=== PATIENT | male | born 1935 | race Caucasian/White ===

== ENCOUNTER 2016-10-19 22:23 | Observation (INO) | payer MEDICARE, BC ==
[2016-10-19] MEDS ORDERED: Sodium Chloride 0.9% 1,000 ML IV SCH (23:30)
[2016-10-19] MEDS ORDERED: Ondansetron 4 MG/2 ML SDV IVPUSH ONE (23:30)
--- NOTE | 2016-10-19 23:43 | EDM.PDOC ---
ED HPI NEURO - General Chief Complaint: Syncope Stated Complaint: illness Time Seen by Provider: 10/19/16 23:35 Source: Reports: Patient, Family History Limitations: Reports: No limitations - History of Present Illness INITIAL COMMENTS - FREE TEXT/NARRATIVE: pt had an MRI today which showed a large distended bladder. He went to the clinic and he had a ellis cath inserted. He had over 1000 cc of urine removed. he went home and had some supper and he passed out in the br. He hit the rt chest area and rt upper abdoman. Timing/Duration: Reports: Hour(s): Associated symptoms: Reports: chest pain, diaphoresis, other ( chilling) - Related Data Allergies/ADRs: Allergies Allergy/AdvReac Type Severity Reaction Status Date / Time simvastatin Allergy Muscle Verified 10/20/16 01:12 Aches Home Meds: Home Meds Esomeprazole Magnesium [Nexium] 20 mg PO BID 12/07/15 [History] Zolpidem Tartrate [Ambien] 10 mg PO BEDTIME 12/07/15 [History] Carbidopa/Levodopa [Carbidopa-Levodopa 25-100 Tab] 1 tab PO BEDTIME 03/03/16 [ History] Fluticasone Propionate [Flonase Allergy Relief] 2 sprays NS DAILY 10/19/16 [ History] Glucosamine HCl [Glucosamine] 1,500 mg PO DAILY 10/19/16 [History] Losartan/Hydrochlorothiazide [Losartan-HCTZ 100-12.5 MG] 1 tab PO DAILY [History] Methocarbamol [Robaxin] 750 mg PO QID PRN 10/19/16 [History] Pravastatin Sodium [Pravastatin (Pravachol)] 40 mg PO BEDTIME 10/19/16 [History] Tamsulosin HCl [Flomax] 0.4 mg PO DAILY 10/19/16 [History] traMADol HCl [Tramadol HCl] 50 mg PO Q6H PRN 10/19/16 [History] Past Medical History HEENT History: Reports: Hard of hearing Gastrointestinal History: Reports: Diverticulosis Musculoskeletal History: Reports: Back pain, chronic Oncologic (Cancer) History: Reports: Squamous cell carcinoma Dermatologic History: Reports: Other (see below) Other Dermatologic History: NOSE AND l EAR CA REMOVED - Past Surgical History GI Surgical History: Reports: Hernia repair/other Social & Family History - Family History Hematologic: Reports: Other (see below) (Daughter with factor V Leiden mutation) . Denies: Bleeding disorder - Tobacco Use Smoking Status *Q: Never Smoker - Alcohol Use Days Per Week of Alcohol Use: 7 Number of Drinks Per Day: 1 Total Drinks Per Week: 7 - Recreational Drug Use Recreational Drug Use: No ED ROS GENERAL - Review of Systems Review Of Systems: See Below Constitutional: Reports: chills, weakness HEENT: Reports: No symptoms Respiratory: Reports: Other (pain in the rt chest) Cardiovascular: Reports: No symptoms Endocrine: Reports: no symptoms GI/Abdominal: Reports: Abdominal pain ED EXAM, NEURO - Physical Exam Exam: See Below Text/Narrative:: pt was at the clinic today and he had a ellis cath inserted because his bladder was very distended. He went home and was doing ok and he went in the bathroom to get ready for bed and he passed out hitting the rt side of his chest and rt upper abdoman. He had a cat scan with contrast today which had shown the markedly distended bladder. He had an Mri of his back earlier. Exam Limited By: No limitations General Appearance: alert, anxious, other (Pt was complaining of having shaking chills after the fall. ) Ears: normal TMs Nose: normal inspection Throat/Mouth: Normal inspection Head Exam: atraumatic Neck: normal inspection Respiratory/Chest: no respiratory distress, other (pt is very tender in the left lower anterior rib cage. ) Cardiovascular: regular rate, rhythm GI/Abdominal: soft, other ( Pt does have tenderness ovr the rt upper abdoman. ) (Male) Exam: Deferred Rectal (Males) Exam: Deferred Neurological: alert, oriented x 3, other ( Pt is feeling very mauseated and has been wretching. ) Back Exam: other ( pt has chronic low back pain. ) Extremities: normal inspection Psychiatric: normal affect Skin Exam: Cool, Other ( Pt was very diaphoretic at home. ) Course - Vital Signs Last Recorded V/S: Last Vital Signs Temp 36.6 C 10/20/16 01:09 Pulse 82 10/20/16 03:07 Resp 15 10/20/16 03:07 BP 131/60 10/20/16 03:07 Pulse Ox 94 L 10/20/16 03:07 - Orders/Labs/Meds Orders: Active Orders 24 hr Category Date Time Status EKG Documentation Completion [RC] ASDIRECTED Care 10/19/16 23:09 Active Abdomen Pelvis w Cont [CT] Stat Exams 10/20/16 01:22 Taken Chest wo Cont [CT] Stat Exams 10/19/16 23:41 Taken Head wo Cont [CT] Stat Exams 10/19/16 23:42 Taken Ribs 2V w Chest Rt [CR] Stat Exams 10/19/16 23:31 Stop Req CULTURE URINE [RM] Stat Lab 10/20/16 00:08 Received Iopamidol [Isovue-300 (61%)] Med 10/20/16 01:45 Active 100 ml IV . DIRECTED PRN Sodium Chloride 0.9% [Normal Saline] 1,000 ml Med 10/19/16 23:30 Active IV ASDIRECTED Sodium Chloride 0.9% [Normal Saline] 1,000 ml Med 10/20/16 03:15 Active IV ASDIRECTED Sodium Chloride 0.9% [Normal Saline] 72 ml Med 10/20/16 01:45 Active IV ASDIRECTED EKG 12 Lead [EK] Routine Ther 10/19/16 23:09 Ordered Medication Orders Sodium Chloride (Normal Saline) 1,000 mls @ 400 mls/hr IV ASDIRECTED [facility] Last Admin: 10/19/16 23:57 Dose: 400 mls/hr Sodium Chloride (Normal Saline) 72 mls @ 3 mls/sec IV ASDIRECTED [facility] Last Admin: 10/20/16 02:00 Dose: 3 mls/sec Sodium Chloride (Normal Saline) 1,000 mls @ 200 mls/hr IV ASDIRECTED [facility] Last Admin: 10/20/16 03:13 Dose: 200 mls/hr Iopamidol (Isovue-300 (61%)) 100 ml IV . DIRECTED PRN PRN Reason: RADIOLOGY EXAM Stop: 10/21/16 01:46 Last Admin: 10/20/16 01:59 Dose: 100 ml Labs: Laboratory Tests 10/19/16 10/19/16 10/19/16 Range/Units 23:15 23:19 23:19 WBC 16.4 H (4.5-11.0) K/uL RBC 4.46 (4.30-5.90) M/uL Hgb 14.3 D (12.0-15.0) g/dL Hct 42.2 (40.0-54.0) % MCV 95 (80-98) fL MCH 32 H (27-31) pg MCHC 34 (32-36) % Plt Count 336 (150-400) K/uL Neut % (Auto) 78 H (36-66) % Lymph % (Auto) 15 L (24-44) % [place] % (Auto) 7 H (2-6) % Eos % (Auto) 1 L (2-4) % Baso % (Auto) 0 (0-1) % Sodium 140 (140-148) mmol/L Potassium 3.1 L (3.6-5.2) mmol/L Chloride 102 (100-108) mmol/L Carbon Dioxide 22 (21-32) mmol/L Anion Gap 19.1 H (5.0-14.0) mmol/L BUN 17 D (7-18) mg/dL Creatinine 1.1 (0.8-1.3) mg/dL Est Cr Clr Drug Dosing 60.53 mL/min Estimated GFR (MDRD) > 60 (>60) Glucose 138 H (74-106) mg/dL Lactic Acid (0.4-2.0) mmol/L Calcium 8.5 (8.5-10.1) mg/dL Total Bilirubin 0.5 (0.2-1.0) mg/dL AST 90 H (15-37) U/L ALT 101 H (12-78) U/L Alkaline Phosphatase 54 (46-116) U/L Troponin I (0.000-0.056) ng/mL Total Protein 7.0 (6.4-8.2) g/dL Albumin 3.7 (3.4-5.0) g/dL Globulin 3.3 (2.3-3.5) g/dL Albumin/Globulin Ratio 1.1 L (1.2-2.2) Urine Color Yellow Urine Appearance Slightly cloudy Urine pH 5.0 (4.5-8.0) Ur Specific [place] 1.015 (1.008-1.030) Urine Protein Negative (NEGATIVE) mg/dL Urine Glucose (UA) Normal (NEGATIVE) mg/dL Urine Ketones Negative (NEGATIVE) mg/dL Urine Occult Blood Large (NEGATIVE) Urine Nitrite Negative (NEGAITVE) Urine Bilirubin Negative (NEGATIVE) Urine Urobilinogen Normal (NORMAL) mg/dL Ur Leukocyte Esterase Small (NEGATIVE) Urine RBC 10-20 H (0-5) Urine WBC 0-5 (0-5) Ur Epithelial Cells Not seen Amorphous Sediment Not seen Urine Bacteria Not seen Urine Mucus Not seen 10/19/16 10/19/16 Range/Units 23:19 23:34 WBC (4.5-11.0) K/uL RBC (4.30-5.90) M/uL Hgb (12.0-15.0) g/dL Hct (40.0-54.0) % MCV (80-98) fL MCH (27-31) pg MCHC (32-36) % Plt Count (150-400) K/uL Neut % (Auto) (36-66) % Lymph % (Auto) (24-44) % [place] % (Auto) (2-6) % Eos % (Auto) (2-4) % Baso % (Auto) (0-1) % Sodium (140-148) mmol/L Potassium (3.6-5.2) mmol/L Chloride (100-108) mmol/L Carbon Dioxide (21-32) mmol/L Anion Gap (5.0-14.0) mmol/L BUN (7-18) mg/dL Creatinine (0.8-1.3) mg/dL Est Cr Clr Drug Dosing mL/min Estimated GFR (MDRD) (>60) Glucose (74-106) mg/dL Lactic Acid 4.4 H (0.4-2.0) mmol/L Calcium (8.5-10.1) mg/dL Total Bilirubin (0.2-1.0) mg/dL AST (15-37) U/L ALT (12-78) U/L Alkaline Phosphatase (46-116) U/L Troponin I < 0.017 (0.000-0.056) ng/mL Total Protein (6.4-8.2) g/dL Albumin (3.4-5.0) g/dL Globulin (2.3-3.5) g/dL Albumin/Globulin Ratio (1.2-2.2) Urine Color Urine Appearance Urine pH (4.5-8.0) Ur Specific [place] (1.008-1.030) Urine Protein (NEGATIVE) mg/dL Urine Glucose (UA) (NEGATIVE) mg/dL Urine Ketones (NEGATIVE) mg/dL Urine Occult Blood (NEGATIVE) Urine Nitrite (NEGAITVE) Urine Bilirubin (NEGATIVE) Urine Urobilinogen (NORMAL) mg/dL Ur Leukocyte Esterase (NEGATIVE) Urine RBC (0-5) Urine WBC (0-5) Ur Epithelial Cells Amorphous Sediment Urine Bacteria Urine Mucus Meds: Medications Generic Name Dose Route Start Last Admin Trade Name Freq PRN Reason Stop Dose Admin Sodium Chloride 1,000 mls @ 400 mls/hr 10/19/16 23:30 10/19/16 23:57 Normal Saline IV 400 mls/hr ASDIRECTED MATIAS Administration Sodium Chloride 72 mls @ 3 mls/sec 10/20/16 01:45 10/20/16 02:00 Normal Saline IV 3 mls/sec ASDIRECTED MATIAS Administration Sodium Chloride 1,000 mls @ 200 mls/hr 10/20/16 03:15 10/20/16 03:13 Normal Saline IV 200 mls/hr ASDIRECTED MATIAS Administration Iopamidol 100 ml 10/20/16 01:45 10/20/16 01:59 Isovue-300 (61%) IV 10/21/16 01:46 100 ml . DIRECTED PRN Administration RADIOLOGY EXAM Discontinued Medications Generic Name Dose Route Start Last Admin Trade Name Freq PRN Reason Stop Dose Admin Hydromorphone HCl 0.5 mg 10/20/16 03:07 10/20/16 03:15 Dilaudid IVPUSH 10/20/16 03:08 0.5 mg ONETIME ONE Administration Levofloxacin/Dextrose 500 mg/ 100 mls @ 100 mls/hr 10/20/16 01:39 10/20/16 02 :03 Premix IV 10/20/16 02:38 100 mls/hr ONETIME ONE Administration Ondansetron HCl 4 mg 10/19/16 23:30 10/19/16 23:59 Zofran IVPUSH 10/19/16 23:31 4 mg ONETIME ONE Administration - Re-Assessments/Exams Free Text/Narrative Re-Assessment/Exam: 10/20/16 01:36 pt hd a cat scan of the chest and look at the upper abdoman. Pt was found to have 2 fractured ribs on the left. With the chest cat scan It was noted that he had an adrenal hematoma. The radiologist did reccommend a cat scan of the abdoman with contrast reduced by 25% 10/20/16 03:08 cat scan showed a hematoma of the adrenal gland and 2 fractured ribs/ Departure - Departure Time of Disposition: 03:09 Disposition: Admitted As Inpatient 67 Condition: fair Clinical Impression: Fracture of two ribs, Hematoma of adrenal gland due to trauma, Sepsis Referrals: Gordon Carcamo MD [Primary Care Provider] - Forms: ED Department Discharge Care Plan Goals: admit to Dr Harding. - My Orders Last 24 Hours: My Active Orders 10/19/16 23:09 EKG Documentation Completion [RC] ASDIRECTED EKG 12 Lead [EK] Routine 10/19/16 23:30 Sodium Chloride 0.9% [Normal Saline] 1,000 ml IV ASDIRECTED 10/19/16 23:31 Ribs 2V w Chest Rt [CR] Stat 10/19/16 23:41 Chest wo Cont [CT] Stat 10/19/16 23:42 Head wo Cont [CT] Stat 10/20/16 00:08 CULTURE URINE [RM] Stat 10/20/16 01:22 Abdomen Pelvis w Cont [CT] Stat 10/20/16 01:45 Iopamidol [Isovue-300 (61%)] 100 ml IV . DIRECTED PRN Sodium Chloride 0.9% [Normal Saline] 72 ml IV ASDIRECTED 10/20/16 03:15 Sodium Chloride 0.9% [Normal Saline] 1,000 ml IV ASDIRECTED - Assessment/Plan Last 24 Hours: My Active Orders 10/19/16 23:09 EKG Documentation Completion [RC] ASDIRECTED EKG 12 Lead [EK] Routine 10/19/16 23:30 Sodium Chloride 0.9% [Normal Saline] 1,000 ml IV ASDIRECTED 10/19/16 23:31 Ribs 2V w Chest Rt [CR] Stat 10/19/16 23:41 Chest wo Cont [CT] Stat 10/19/16 23:42 Head wo Cont [CT] Stat 10/20/16 00:08 CULTURE URINE [RM] Stat 10/20/16 01:22 Abdomen Pelvis w Cont [CT] Stat 10/20/16 01:45 Iopamidol [Isovue-300 (61%)] 100 ml IV . DIRECTED PRN Sodium Chloride 0.9% [Normal Saline] 72 ml IV ASDIRECTED 10/20/16 03:15 Sodium Chloride 0.9% [Normal Saline] 1,000 ml IV ASDIRECTED
[2016-10-20] MEDS ORDERED: Levofloxacin/Dextrose 5%-Water 500 MG in Premix Bag 1 BAG IV ONE (01:39)
[2016-10-20] MEDS ORDERED: Iopamidol 612 MG/ML 100 ML Bottle IV PRN (01:45)
[2016-10-20] MEDS ORDERED: HYDROmorphone 0.5 MG/0.5 ML Syringe IVPUSH ONE (03:07)
[2016-10-20] MEDS: Sodium Chloride 0.9% 1,000 ML IV SCH ×2 (03:13→08:06)
[2016-10-20] MEDS ORDERED: Sodium Chloride 0.9% 1,000 ML IV SCH (03:15)
[2016-10-20] MEDS ORDERED: Levofloxacin 500 MG Tab PO SCH ×2 (04:45→21:00)
[2016-10-20] MEDS: Acetaminophen/HYDROcodone 325-10 MG Tab PO PRN ×3 (05:28→16:05)
--- NOTE | 2016-10-20 08:08 | HP ---
IDENTIFYING DATA: Gordon Luz is an 81-year-old male from [place]. CHIEF COMPLAINT: Fall with resultant pain. HISTORY OF PRESENT ILLNESS: This adult male today had scheduled imaging completed, which revealed evidence of urinary outlet obstructive process with markedly distended bladder. He was summoned to the clinic and had a Brown catheter inserted this afternoon with drainage of greater than 1 L of fluid. He states he has had no recent history of lower abdominal pain or urinary hesitancy. He denies nocturia or incontinence. He felt well after placement of Brown catheter and returned to home. This evening as he was preparing for bed, he was in his bathroom and had an episode of dizziness or lightheadedness, falling and striking the right aspect of his trunk and right upper extremity on the edge of a tub. He presented to the hospital for evaluation and was admitted with noted injuries. Primary complaint is that of right-sided thoracic pain, most notably with movement and deep inspiration. Additionally, he has a skin tear developing over the extensor surface of the right arm and has developing right-sided abdominal pain with nausea. He denies shortness of breath, cough, sputum production, or hemoptysis. An episode of emesis without hematemesis was noted at home. PREVIOUS SURGERIES: Include a hiatal hernia repair. Additionally, he has a history of restless legs syndrome, hypertension, hyperlipidemia, and intermittent mid lumbar back pain. Dyspeptic symptoms are managed with the use of PPI agents. HABITS: Nonsmoker. Caffeine intake averages 2 to 3 cups of coffee daily. Alcohol use of 1 to 2 drinks per day. He did have a single drink this evening with supper. ALLERGIES: REPORTED TO SIMVASTATIN WITH MYALGIAS. CURRENT MEDICATIONS: Nexium 20 mg p.o. b.i.d.; Ambien 10 mg at bedtime; carbidopa/levodopa 25/100 at bedtime; fluticasone nasal spray to each naris daily; glucosamine 1500 mg daily; losartan with hydrochlorothiazide 100/12.5 mg daily; methocarbamol 750 mg q.i.d. p.r.n. muscle spasm; pravastatin 40 mg at bedtime; Flomax 0.4 mg at evening initiated today with catheterization; and tramadol 50 mg q.6 hours p.r.n. pain, no recent use. SOCIAL HISTORY: Retired banker. He lives independently with his in their [place] [facility]. They winter in [facility]. They have returned from their [place] residence driving by car within the past week. He reports children live in [place], [place] and [place], [place]. FAMILY HISTORY: Denies family history of recent acute illnesses. REVIEW OF SYSTEMS: NEUROLOGIC: Glasses are worn. No significant hearing loss. No history of strokes or seizures. Restless leg is managed with the use of Sinemet, additionally he uses Ambien at bedtime to aid in sleep; has not used either medication today. CARDIAC: History of hypertension. No history of diabetes, congenital heart disease, rheumatic fever, murmur, KS, or cardiac dysrhythmia. RESPIRATORY: Denies cough, sputum production, or chronic obstructive pulmonary disease. No recent URIs. GI: Dyspeptic symptoms respond to use of Nexium. No history of hepatitis, jaundice, gallbladder disease, constipation, diarrhea, melena, or hematochezia. : Urinary obstructive symptoms as noted today with Brown catheter placement. No history of recurrent UTIs. He denies fevers or chills since instrumentation earlier today. MUSCULOSKELETAL: Intermittent back pain, otherwise no complaints. No other recent falls. OBJECTIVE: GENERAL: Appearance is that of an adult male, in mild distress secondary to chest wall pain. INITIAL VITALS: Temperature 36.6 degrees centigrade, pulse 82, respiratory rate 15, blood pressure 131/60, and O2 saturations 94% on room air. HEENT: Suggestion of mild hearing loss by conversation. Canals and TMs are normal. Extraocular eye movements are intact. No trauma or injury to the face. No oral or pharyngeal lesions. NECK: No adenopathy or thyromegaly. Brisk carotid pulses. No bruits or JVD. LUNGS: Symmetrical, clear, non-tachypneic. No pleuritic rubs. He has right-sided chest wall tenderness to palpation and discomfort with deep inspiration. HEART: Regular without murmurs or gallops noted. ABDOMEN: Nondistended. Active sounds. No obvious organomegaly. No guarding, rebound, or referred pain. Moderate tenderness to palpation in the right mid upper abdomen. No CVA tenderness. No lower abdominal discomfort. Brown catheter is in place draining leticia- colored urine. MUSCULOSKELETAL: No pelvic tenderness to palpation. No percussion tenderness over the lumbar spine. Lower extremities are warm and pink. Brisk capillary refill. Strong arterial pulses. No pitting edema, cyanosis, or diaphoresis. LABORATORY DATA: On admission: WBC 16.4, hemoglobin 14.3, platelet count 336,000 with 78 neutrophils, 15 lymphocytes, 7 monos, 1 eo. Sodium 140, potassium 3.1, BUN 17, creatinine 1.1, glucose 138, calcium 8.5, alkaline phosphatase 54, AST 90. Urinalysis: A large amount of occult blood, 10 to 20 rbc's per high-powered field, leukocyte esterase small, 0 to 5 wbc's, no bacteria evident. Troponin less than 0.017. Lactic acid is mildly elevated at 4.4. CT imaging obtained at the time of admission revealed right-sided rib fractures without heme effusion or pulmonary injury. Right adrenal hematoma is also reported by Radiology Services. IMPRESSION: 1. Right rib fracture with resultant chest wall pain secondary to fall. 2. Right adrenal hematoma secondary to fall. 3. Urinary outlet obstruction with Brown catheter insertion today and initiation of alpha- fox therapy with Flomax. 4. History of hypertension. 5. Restless legs syndrome. 6. Intermittent mid lumbar back pain. PLAN: The patient is admitted to observation bed for pain management, IV fluids, oral intake as tolerated, and oral analgesics will be provided. Encourage movement with standby assistance of nursing staff. Followup BMP to review renal function and electrolytes in 24 hours is requested. We will continue with his Nexium, Sinemet, losartan, hydrochlorothiazide, and pravastatin as well as Flomax. Recognize that DEJAN inhibitor may be responsible for orthostasis with medications start-up. Full code status is initiated. I anticipate a stay of less than 48 hours and discharged to home when pain management shows improved control. Rich Harding MD /[id number]
[2016-10-20] MEDS: Ondansetron 4 MG/2 ML SDV IVPUSH PRN ×2 (08:31→20:19)
[2016-10-20] MEDS ORDERED: Hydrochlorothiazide 12.5 MG Cap PO SCH (09:00)
[2016-10-20] MEDS ORDERED: Losartan 50 MG Tab PO SCH (09:00)
[2016-10-20] MEDS: LOSARTAN PO SCH (09:49)
[2016-10-20] MEDS: HCTZ PO SCH (09:49)
[2016-10-20] MEDS: Pantoprazole 40 MG Tab.CR PO SCH ×2 (09:54→16:07)
[2016-10-20] MEDS: Tamsulosin 0.4 MG Cap.ER PO SCH (09:54)
[2016-10-20] MEDS ORDERED: METHOCARBAMOL 750 MG PO PRN (11:51)
[2016-10-20] MEDS ORDERED: Potassium Chloride 20 MEQ Tab.ER PO ONE ×2 (12:30→18:00)
[2016-10-20] MEDS: traMADol 50 MG Tab PO PRN ×2 (13:46→20:04)
[2016-10-20] MEDS ORDERED: LEVODOPA PO SCH (21:00)
[2016-10-20] MEDS ORDERED: CARBIDOPA PO SCH (21:00)
[2016-10-20] MEDS ORDERED: Pravastatin 20 MG Tab PO SCH (21:00)
[2016-10-21] MEDS: Acetaminophen/HYDROcodone 325-10 MG Tab PO PRN (00:33)
[2016-10-21] MEDS: traMADol 50 MG Tab PO PRN (05:30)
[2016-10-21] MEDS: Pantoprazole 40 MG Tab.CR PO SCH (07:25)
[2016-10-21] MEDS: HCTZ PO SCH (08:17)
[2016-10-21] MEDS: LOSARTAN PO SCH (08:17)
[2016-10-21] MEDS: Tamsulosin 0.4 MG Cap.ER PO SCH (08:18)
[2016-10-21 10:50] VITALS: BP 172/96
--- NOTE | 2016-10-21 11:20 | PCM.DCSUM1 ---
Discharge Summary - Hospital Course Brief History: Mr. Luz is an 81-year-old gentleman who is admitted through the emergency department after he became lightheaded and experienced a syncopal episode at home resulting in 2 right-sided rib fractures as well as hematoma of the adrenal gland. - Discharge Data Discharge Date: 10/21/16 Discharge Disposition: Home, Self-Care 01 Condition: Fair - Discharge Diagnosis/Problem(s) (1) Fracture of two ribs SNOMED Code(s): 95066225 ICD Code: S22.49XA - MULTIPLE FRACTURES OF RIBS, UNSP SIDE, INIT FOR CLOS FX Status: Acute Current Visit: Yes (2) Hematoma of adrenal gland due to trauma SNOMED Code(s): 100657366 ICD Code: S37.819A - UNSPECIFIED INJURY OF ADRENAL GLAND, INITIAL ENCOUNTER Status: Acute Current Visit: Yes (3) Syncope and collapse SNOMED Code(s): 721369995 ICD Code: R55 - SYNCOPE AND COLLAPSE Status: Acute Current Visit: No - Patient Summary/Data Hospital Course: Mr. Luz and has had recent difficulty with urination, on the day of admission CT scan showed evidence of significant bladder distention. He was brought into the clinic and a Brown catheter was placed for management of the urinary retention, at that time he was also started on Flomax 0.4 mg daily. He felt well through the afternoon, he and his went to [place] do some shopping. After they returned he was standing in the kitchen and noted lightheadedness with some diaphoresis and experienced a syncopal episode, the way to the floor he did hit the counter with his right chest and upper abdomen. He was brought into the urgency department for further evaluation. CT scan of the head was unremarkable, CT scan of the chest documented 2 right-sided rib fractures. CT scan of the abdomen showed evidence of a hematoma involving the adrenal gland but no other significant abnormalities. He was admitted for pain control and further monitoring. It was felt likely that the additional dose of Flomax contributed to his lightheadedness and syncopal episode, there may also have been a component of a vagal episode. He was hemodynamically stable throughout the rest of his hospital stay with no evidence of significant cardiac dysrhythmias on cardiac monitoring. He will be discharged home with incentive spirometer as well as pain medication for management of his rib fractures. Brown catheter will be left in place and he will remain on the Flomax. Blood pressure medications were adjusted, prior to admission he been on losartan with hydrochlorothiazide 100/12.5. This will be changed at the time of discharge did just losartan 100 mg daily without the hydrochlorothiazide. He will monitor his blood pressures at home and if he experiences significant lightheadedness will lie down immediately. Activity will be as tolerated and he will resume his usual diet. He already has a followup appointment with Dr. Carcamo in 5 days at the clinic. - Patient Instructions Diet: Regular Diet as Tolerated Activity: As Tolerated Other/Special Instructions: Use the incentive spirometer several times an hour while awake. Patient already has appointment to see Dr. Carcamo for followup in 5 days. Brown catheter to remain in place until he sees Dr. Carcamo for the followup appointment. - Discharge Plan Prescriptions/Med Rec: Acetaminophen/HYDROcodone [[place] 325-10 MG] 1 tab PO Q4H PRN #24 tablet PRN Reason: Pain Losartan [Cozaar] 100 mg PO DAILY #30 tablet Home Medications: Home Meds Esomeprazole Magnesium [Nexium] 20 mg PO BID 12/07/15 [History] Zolpidem Tartrate [Ambien] 10 mg PO BEDTIME 12/07/15 [History] Carbidopa/Levodopa [Carbidopa-Levodopa 25-100 Tab] 1 tab PO BEDTIME 03/03/16 [ History] Fluticasone Propionate [Flonase Allergy Relief] 2 sprays NS DAILY 10/19/16 [ History] Glucosamine HCl [Glucosamine] 1,500 mg PO DAILY 10/19/16 [History] Methocarbamol [Robaxin] 750 mg PO QID PRN 10/19/16 [History] Pravastatin Sodium [Pravastatin (Pravachol)] 40 mg PO BEDTIME 10/19/16 [History] Tamsulosin HCl [Flomax] 0.4 mg PO DAILY 10/19/16 [History] Acetaminophen/HYDROcodone [[place] 325-10 MG] 1 tab PO Q4H PRN #24 tablet [Rx] Losartan [Cozaar] 100 mg PO DAILY #30 tablet 10/21/16 [Rx] Forms: ED Department Discharge Referrals: Gordon Carcamo MD [Primary Care Provider] - - Patient Data Vitals - Most Recent: Last Vital Signs Temp 97.6 F 10/21/16 10:47 Pulse 67 10/21/16 10:47 Resp 16 10/21/16 10:47 BP 172/96 H 10/21/16 10:47 Pulse Ox 90 L 10/21/16 10:47 Weight - Most Recent: 227 lb I&O - Last 24 hours: Intake & Output 10/20/16 10/21/16 10/21/16 22:59 06:59 14:59 Intake Total 300 400 Output Total 225 600 Balance 75 -200 Lab Results - Last 24 hrs: Laboratory Results - last 24 hr 10/21/16 10/21/16 Range/Units 05:42 05:42 WBC 12.5 H (4.5-11.0) K/uL RBC 4.12 L (4.30-5.90) M/uL Hgb 13.4 (12.0-15.0) g/dL Hct 39.4 L (40.0-54.0) % MCV 96 (80-98) fL MCH 33 H (27-31) pg MCHC 34 (32-36) % Plt Count 240 (150-400) K/uL Neut % (Auto) 80 H (36-66) % Lymph % (Auto) 9 L (24-44) % [place] % (Auto) 10 H (2-6) % Eos % (Auto) 0 L (2-4) % Baso % (Auto) 0 (0-1) % Sodium 138 L (140-148) mmol/L Potassium 4.1 (3.6-5.2) mmol/L Chloride 105 (100-108) mmol/L Carbon Dioxide 26 (21-32) mmol/L Anion Gap 11.1 (5.0-14.0) mmol/L BUN 16 (7-18) mg/dL Creatinine 0.9 (0.8-1.3) mg/dL Est Cr Clr Drug Dosing 73.98 mL/min Estimated GFR (MDRD) > 60 (>60) Glucose 125 H (74-106) mg/dL Calcium 8.1 L (8.5-10.1) mg/dL Med Orders - Current: Current Medications Hydrocodone Bitart/Acetaminophen ([place] 325-10 Mg) 1 tab PO Q4H PRN PRN Reason: Pain Last Admin: 10/21/16 00:33 Dose: 1 tab Carbidopa/Levodopa (Sinemet 25-100 Mg) 1 tab PO BEDTIME MATIAS Last Admin: 10/20/16 20:06 Dose: 1 tab Methocarbamol 750 Mg ((Ptom)) 0 mg PO QID PRN PRN Reason: Spasms Last Admin: 10/20/16 12:02 Dose: 1 mg Ondansetron HCl (Zofran) 4 mg IVPUSH Q4H PRN PRN Reason: Nausea/Vomiting Last Admin: 10/20/16 20:19 Dose: 4 mg Pantoprazole Sodium (Protonix) 40 mg PO BIDAC [facility] Last Admin: 10/21/16 07:25 Dose: 40 mg Losartan/Hctz 100mg/ (12.5mg (Ptom)) 0 each PO DAILY [facility] Last Admin: 10/21/16 08:17 Dose: 1 each Pravastatin Sodium (Pravachol) 40 mg PO BEDTIME [facility] Last Admin: 10/20/16 20:05 Dose: 40 mg Tamsulosin HCl (Flomax) 0.4 mg PO DAILY [facility] Last Admin: 10/21/16 08:18 Dose: 0.4 mg Tramadol HCl (Ultram) 50 mg PO Q6H PRN PRN Reason: Pain (severe 7-10) Last Admin: 10/21/16 05:30 Dose: 50 mg Discontinued Medications Hydromorphone HCl (Dilaudid) 0.5 mg IVPUSH ONETIME ONE Stop: 10/20/16 03:08 Last Admin: 10/20/16 03:15 Dose: 0.5 mg Sodium Chloride (Normal Saline) 1,000 mls @ 400 mls/hr IV ASDIRECTED [facility] Last Admin: 10/19/16 23:57 Dose: 400 mls/hr Levofloxacin/Dextrose 500 mg/ (Premix) 100 mls @ 100 mls/hr IV ONETIME ONE Stop: 10/20/16 02:38 Last Admin: 10/20/16 02:03 Dose: 100 mls/hr Sodium Chloride (Normal Saline) 72 mls @ 3 mls/sec IV ASDIRECTED [facility] Last Admin: 10/20/16 02:00 Dose: 3 mls/sec Sodium Chloride (Normal Saline) 1,000 mls @ 200 mls/hr IV ASDIRECTED [facility] Last Admin: 10/20/16 08:06 Dose: 200 mls/hr Iopamidol (Isovue-300 (61%)) 100 ml IV . DIRECTED PRN PRN Reason: RADIOLOGY EXAM Stop: 10/21/16 01:46 Last Admin: 10/20/16 01:59 Dose: 100 ml Levofloxacin (Levaquin) 500 mg PO Q24H [facility] Last Admin: 10/20/16 05:06 Dose: Not Given Levofloxacin (Levaquin) 500 mg PO BEDTIME [facility] Last Admin: 10/20/16 20:06 Dose: 500 mg Ondansetron HCl (Zofran) 4 mg IVPUSH ONETIME ONE Stop: 10/19/16 23:31 Last Admin: 10/19/16 23:59 Dose: 4 mg Potassium Chloride (Klor-Con M20) 40 meq PO ONETIME ONE Stop: 10/20/16 12:31 Last Admin: 10/20/16 12:02 Dose: 40 meq Potassium Chloride (Klor-Con M20) 40 meq PO ONETIME ONE Stop: 10/20/16 18:01 Last Admin: 10/20/16 17:29 Dose: 40 meq *Q Meaningful Use (DIS) - VTE *Q VTE Criteria *Q: - Stroke *Q Stroke Criteria *Q: - AMI *Q AMI Criteria *Q:
== END 2016-10-21 12:45 | disposition home or self-care (01) ==
LOC: JP.ED 22:23 → JP.MS 10-20 03:22
PROVIDERS: ADMIT Family Medicine; ATTEND Hospitalist
DX: S22.49XA Multiple fractures of ribs, unspecified side, initial encounter for closed fracture (principal); S37.81 Injury of adrenal gland; R55 Syncope and collapse; I10 Essential (primary) hypertension; E78.5 Hyperlipidemia, unspecified; Z79.899 Other long term (current) drug therapy; W18.09XA Striking against other object with subsequent fall, initial encounter; Z98.890 Other specified postprocedural states; Z88.8 Allergy status to other drugs, medicaments and biological substances; R19.00 Intra-abdominal and pelvic swelling, mass and lump, unspecified site; N32.89 Other specified disorders of bladder; N28.9 Disorder of kidney and ureter, unspecified; R91.1 Solitary pulmonary nodule; R93.8 Abnormal findings on diagnostic imaging of other specified body structures
CPT/HCPCS: 36415; 70450; 71250; 74177; 80048; 80053; 81001; 82565; 83605; 84484; 85025; 87086; 93005; 93010; 96361; 96365; 96375; 96376; 99217; 99284; 99285; A9270; G0378; J1170; J1956; J2405; J7030; J7040; Q9967

== ENCOUNTER 2016-10-22 07:07 | Inpatient (IN) | payer MEDICARE, BC ==
--- NOTE | 2016-10-22 07:39 | EDM.PDOC ---
ED HISTORY OF PRESENT ILLNESS - General Chief Complaint: Cardiovascular Problem Stated Complaint: [facility] SATURDAY Time Seen by Provider: 10/22/16 07:38 Source: Reports: Patient, Family History Limitations: Reports: No limitations - History of Present Illness INITIAL COMMENTS - FREE TEXT/NARRATIVE: pt arrived with pain in the ribs. His was concerned about his bp. They got a new cuff and the reading was way over 200. He is continuously nauseated and wretching. Timing/Duration: Reports: Day(s):, Waxing/waning Location, General: Reports: chest, other (pt has fractured 8th and 9th ribs, ) Quality: Reports: Sharp Associated Symptoms: Reports: chest pain, cough, nausea/vomiting, shortness of breath - Related Data Allergies/ADRs: Allergies Allergy/AdvReac Type Severity Reaction Status Date / Time simvastatin AdvReac Muscle Verified 10/20/16 09:07 Aches Home Meds: Home Meds Esomeprazole Magnesium [Nexium] 20 mg PO BID 12/07/15 [History] Zolpidem Tartrate [Ambien] 10 mg PO BEDTIME 12/07/15 [History] Carbidopa/Levodopa [Carbidopa-Levodopa 25-100 Tab] 1 tab PO BEDTIME 03/03/16 [ History] Fluticasone Propionate [Flonase Allergy Relief] 2 sprays NS DAILY 10/19/16 [ History] Glucosamine HCl [Glucosamine] 1,500 mg PO DAILY 10/19/16 [History] Methocarbamol [Robaxin] 750 mg PO QID PRN 10/19/16 [History] Pravastatin Sodium [Pravastatin (Pravachol)] 40 mg PO BEDTIME 10/19/16 [History] Tamsulosin HCl [Flomax] 0.4 mg PO DAILY 10/19/16 [History] Acetaminophen/HYDROcodone [[place] 325-10 MG] 1 tab PO Q4H PRN #24 tablet [Rx] Losartan [Cozaar] 100 mg PO DAILY #30 tablet 10/21/16 [Rx] Ondansetron [Zofran ODT] 4 mg PO Q4H PRN #12 tab.dis 10/21/16 [Rx] Sennosides/Docusate Sodium [Senokot-S Tablet] 1 each PO BID #60 tablet 10/21/16 [Rx] Past Medical History HEENT History: Reports: Hard of hearing Cardiovascular History: Reports: High cholesterol, Hypertension Gastrointestinal History: Reports: Diverticulosis Other Gastrointestinal History: Vega Esophagus 2012 Genitourinary History: Reports: Prostate disorder, Retention, urinary, Other ( see below) Other Genitourinary History: Urinary Brown inserted 10/19/16. Erectial dysfunction Musculoskeletal History: Reports: Back pain, chronic Other Musculoskeletal History: DJD, Restless Legs Oncologic (Cancer) History: Reports: Squamous cell carcinoma Dermatologic History: Reports: Other (see below) Other Dermatologic History: NOSE AND l EAR CA REMOVED - Infectious Disease History Infectious Disease History: Reports: Chicken pox, Measles, Mumps - Past Surgical History GI Surgical History: Reports: Hernia repair/other Social & Family History - Family History Family Medical History: Noncontributory Hematologic: Reports: Other (see below) (Daughter with factor V Leiden mutation) . Denies: Bleeding disorder - Tobacco Use Smoking Status *Q: Never Smoker Second Hand Smoke Exposure: No - Caffeine Use Caffeine Use: Reports: Coffee - Alcohol Use Days Per Week of Alcohol Use: 6 Number of Drinks Per Day: 1 Total Drinks Per Week: 6 - Recreational Drug Use Recreational Drug Use: No ED ROS GENERAL - Review of Systems Review Of Systems: See Below Constitutional: Reports: decreased appetite HEENT: Reports: No symptoms Respiratory: Reports: Shortness of Breath, Other (pain in the rt rib cage area. ) Cardiovascular: Reports: Chest pain GI/Abdominal: Reports: Nausea : Reports: no symptoms Musculoskeletal: Reports: no symptoms Skin: Reports: no symptoms Neurological: Reports: Syncope Psychiatric: Reports: Anxiety ED EXAM, GENERAL - Physical Exam Exam: See Below Free Text/Narrative:: pt continues to wretch and vomit small amounts. He is not able to get fluids in. He is very uncomfortable in the rt rib cage area. Exam Limited By: No limitations General Appearance: alert, moderate distress Ears: normal TMs Ear Exam: right ear: TM normal Nose: normal inspection Throat/Mouth: Normal inspection Head: atraumatic Neck: normal inspection Respiratory/Chest: decreased breath sounds Cardiovascular: regular rate, rhythm GI/Abdominal: distended Rectal (Males) Exam: Deferred Back Exam: normal inspection Extremities: normal inspection Neurological: alert, oriented, normal cognition Psychiatric: anxious Course - Vital Signs Last Recorded V/S: Last Vital Signs Temp 36.5 C 10/22/16 07:24 Pulse 66 10/22/16 09:22 Resp 18 10/22/16 09:22 BP 151/93 H 10/22/16 09:22 Pulse Ox 91 L 10/22/16 09:22 - Orders/Labs/Meds Orders: Active Orders 24 hr Category Date Time Status Abdomen 2V AP Flat Upright [CR] Stat Exams 10/22/16 08:52 Taken Sodium Chloride 0.9% [Normal Saline] 1,000 ml Med 10/22/16 07:45 Active IV ASDIRECTED Medication Orders Sodium Chloride (Normal Saline) 1,000 mls @ 500 mls/hr IV ASDIRECTED MATIAS Last Admin: 10/22/16 08:08 Dose: 500 mls/hr Labs: Laboratory Tests 10/22/16 10/22/16 Range/Units 07:47 07:47 WBC 13.7 H (4.5-11.0) K/uL RBC 4.36 (4.30-5.90) M/uL Hgb 14.0 (12.0-15.0) g/dL Hct 41.1 (40.0-54.0) % MCV 94 (80-98) fL MCH 32 H (27-31) pg MCHC 34 (32-36) % Plt Count 249 (150-400) K/uL Neut % (Auto) 83 H (36-66) % Lymph % (Auto) 7 L (24-44) % [place] % (Auto) 9 H (2-6) % Eos % (Auto) 0 L (2-4) % Baso % (Auto) 0 (0-1) % Sodium 133 L (140-148) mmol/L Potassium 3.3 L (3.6-5.2) mmol/L Chloride 97 L (100-108) mmol/L Carbon Dioxide 30 (21-32) mmol/L Anion Gap 9.3 (5.0-14.0) mmol/L BUN 21 H (7-18) mg/dL Creatinine 1.0 (0.8-1.3) mg/dL Est Cr Clr Drug Dosing TNP Estimated GFR (MDRD) > 60 (>60) Glucose 150 H (74-106) mg/dL Calcium 9.3 (8.5-10.1) mg/dL Meds: Medications Generic Name Dose Route Start Last Admin Trade Name Ligia PRN Reason Stop Dose Admin Sodium Chloride 1,000 mls @ 500 mls/hr 10/22/16 07:45 10/22/16 08:08 Normal Saline IV 500 mls/hr ASDIRECTED MATIAS Administration Discontinued Medications Generic Name Dose Route Start Last Admin Trade Name Ligia PRN Reason Stop Dose Admin Hydrocodone Bitart/Acetaminophen 1 tab 10/22/16 09:29 10/22/16 09:44 [place] 325-5 Mg PO 10/22/16 09:30 Not Given ONETIME ONE Ketorolac Tromethamine 30 mg 10/22/16 09:15 10/22/16 09:20 Toradol IVPUSH 10/22/16 09:16 30 mg ONETIME ONE Administration Ondansetron HCl 4 mg 10/22/16 07:45 10/22/16 08:09 Zofran IVPUSH 10/22/16 07:46 4 mg ONETIME ONE Administration - Re-Assessments/Exams Free Text/Narrative Re-Assessment/Exam: 10/22/16 09:49 pt had o2 sats in the mid 80s with no o2 on. He was able to deep breath and has been using his insentive spirometer. He is not having stools and he is vomiting and feeling nauseated continuously. Departure - Departure Time of Disposition: 09:51 Disposition: Admitted As Inpatient 67 Condition: fair Clinical Impression: Ileus, Low O2 saturation, Fracture, ribs, Brown catheter in place Forms: ED Department Discharge Care Plan Goals: admit to Dr Narvaez. - My Orders Last 24 Hours: My Active Orders 10/22/16 07:45 Sodium Chloride 0.9% [Normal Saline] 1,000 ml IV ASDIRECTED 10/22/16 08:52 Abdomen 2V AP Flat Upright [CR] Stat - Assessment/Plan Last 24 Hours: My Active Orders 10/22/16 07:45 Sodium Chloride 0.9% [Normal Saline] 1,000 ml IV ASDIRECTED 10/22/16 08:52 Abdomen 2V AP Flat Upright [CR] Stat
[2016-10-22] MEDS ORDERED: Sodium Chloride 0.9% 1,000 ML IV SCH (07:45)
[2016-10-22] MEDS ORDERED: Ondansetron 4 MG/2 ML SDV IVPUSH ONE (07:45)
--- NOTE | 2016-10-22 08:50 | CR ---
Two-view chest Correlation is made with the chest CT of 2 days prior. Findings: There is mild elevation of right hemidiaphragm. There is a loop of colon underlying the di aphragm. There are 2 right lower rib fracture seen. There is no pneumothorax. There is no significan t effusion. The heart and vascular structures are stable. Impression: 1. Right-sided rib fractures. 2. Mild elevation of the right hemidiaphragm versus eventration.
[2016-10-22] MEDS ORDERED: Ketorolac 30 MG/ML SDV IVPUSH ONE (09:15)
[2016-10-22] MEDS ORDERED: Acetaminophen/HYDROcodone 325-5 MG Tab PO ONE (09:29)
--- NOTE | 2016-10-22 09:49 | CR ---
2 view abdomen There is mild gaseous distention of loops of large and small bowel. Contrast is demonstrated in the right colon from a recent CT exam. There is no free air seen. Right inferior rib fractures are demon strated. Impression: 1. Mild gaseous distention of large and small bowel. Correlate for possible ileus following trauma.
--- NOTE | 2016-10-22 10:40 | PCM.HP ---
H&P History of Present Illness - General Date of Service: 10/22/16 Admit Problem/Dx: Admission Diagnosis/Problem Admission Diagnosis/Problem Nausea Source of Information: Patient, Provider History Limitations: Reports: No limitations - History of Present Illness Initial Comments - Free Text/Narative: Gordon presents to the emergency room today with nausea and retching. Symptoms started last night after hospital discharge and persisted through the evening. He reports a significant and persistent nausea with lots of retching but he has not vomited. He has had some intermittent cramp-like abdominal pain that is diffuse. The pain does not radiate. He hasn't taken anything to make it feel better. No obvious triggers and the pain seems to come and go on its own. He has never had pain like this before. He did try a suppository last night to see if he can get the bowels moving but this did not have success. Still having a fair amount of pain in the right side of his chest from his rib fractures. No fevers or chills. No appetite today. His last bowel movement was 3 days ago. No obvious sick contacts. Workup in the emergency room revealed evidence for ileus based on imaging. He will need admission for probable post traumatic ileus as well as additional titration of pain medications for rib fractures. Right Middle Pain Score (Numeric/FACES): 3 - Related Data Allergies/Adverse Reactions: Allergies Allergy/AdvReac Type Severity Reaction Status Date / Time simvastatin AdvReac Muscle Verified 10/20/16 09:07 Aches Home Medications: Home Meds Esomeprazole Magnesium [Nexium] 20 mg PO BID 12/07/15 [History] Zolpidem Tartrate [Ambien] 10 mg PO BEDTIME 12/07/15 [History] Carbidopa/Levodopa [Carbidopa-Levodopa 25-100 Tab] 1 tab PO BEDTIME 03/03/16 [ History] Fluticasone Propionate [Flonase Allergy Relief] 2 sprays NS DAILY 10/19/16 [ History] Glucosamine HCl [Glucosamine] 1,500 mg PO DAILY 10/19/16 [History] Methocarbamol [Robaxin] 750 mg PO QID PRN 10/19/16 [History] Pravastatin Sodium [Pravastatin (Pravachol)] 40 mg PO BEDTIME 10/19/16 [History] Tamsulosin HCl [Flomax] 0.4 mg PO DAILY 10/19/16 [History] Acetaminophen/HYDROcodone [[place] 325-10 MG] 1 tab PO Q4H PRN #24 tablet [Rx] Losartan [Cozaar] 100 mg PO DAILY #30 tablet 10/21/16 [Rx] Ondansetron [Zofran ODT] 4 mg PO Q4H PRN #12 tab.dis 10/21/16 [Rx] Sennosides/Docusate Sodium [Senokot-S Tablet] 1 each PO BID #60 tablet 10/21/16 [Rx] Past Medical History HEENT History: Reports: Hard of hearing Cardiovascular History: Reports: High cholesterol, Hypertension Gastrointestinal History: Reports: Diverticulosis Other Gastrointestinal History: Vega Esophagus 2012 Genitourinary History: Reports: Prostate disorder, Retention, urinary, Other ( see below) Other Genitourinary History: Urinary Brown inserted 10/19/16. Erectial dysfunction Musculoskeletal History: Reports: Back pain, chronic Other Musculoskeletal History: DJD, Restless Legs Oncologic (Cancer) History: Reports: Squamous cell carcinoma Dermatologic History: Reports: Other (see below) Other Dermatologic History: NOSE AND l EAR CA REMOVED - Infectious Disease History Infectious Disease History: Reports: Chicken pox, Measles, Mumps - Past Surgical History GI Surgical History: Reports: Hernia repair/other Social & Family History - Family History Family Medical History: Noncontributory Hematologic: Reports: Other (see below) (Daughter with factor V Leiden mutation) . Denies: Bleeding disorder - Tobacco Use Smoking Status *Q: Never Smoker Second Hand Smoke Exposure: No - Caffeine Use Caffeine Use: Reports: Coffee - Alcohol Use Days Per Week of Alcohol Use: 6 Number of Drinks Per Day: 1 Total Drinks Per Week: 6 - Recreational Drug Use Recreational Drug Use: No H&P Review of Systems - Review of Systems: Review Of Systems: See Below Free Text/Narrative: A complete 12 point review of systems was obtained. Pertinent positives and negatives are noted in the history of present illness. All other systems were reviewed and were negative except as noted. Exam - Exam Exam: See Below - Vital Signs Vital Signs: Last Vital Signs Temp 36.5 C 10/22/16 07:24 Pulse 66 10/22/16 09:22 Resp 18 10/22/16 09:22 BP 151/93 H 10/22/16 09:22 Pulse Ox 91 L 04/24/17 09:22 Weight: 102 kg - Exam Quality Assessment: supplemental oxygen, urinary catheter General: alert, oriented, cooperative. No: mild distress HEENT: No: Mucosa moist & pink (dry), Scleral icterus Neck: supple, trachea midline Lungs: Clear to auscultation, Normal respiratory effort, Decreased breath sounds (mild right lung base) Cardiovascular: regular rate, regular rhythm, normal S1, normal S2, other ( tenderness right lateral chest ) Abdomen: soft, distention (mild), tenderness (mild RLQ), hypoactive bowel sounds. No: guarding, mass Back Exam: normal inspection, full range of motion Extremities: normal inspection, normal pulses. No: edema Peripheral Pulses: 2+: dorsalis pedis (L), dorsalis pedis (R) Skin: warm, dry Neuro Extensive - Mental Status: alert, oriented x3, nl response to commands Neuro Extensive - Motor, Sensory, Reflexes: CN II-XII intact. No: dysarthria, abnormal motor, tremor Psychiatric: alert, normal affect, normal mood - Patient Data Lab Results last 24 hrs: Laboratory Results - last 24 hr 10/22/16 10/22/16 Range/Units 07:47 07:47 WBC 13.7 H (4.5-11.0) K/uL RBC 4.36 (4.30-5.90) M/uL Hgb 14.0 (12.0-15.0) g/dL Hct 41.1 (40.0-54.0) % MCV 94 (80-98) fL MCH 32 H (27-31) pg MCHC 34 (32-36) % Plt Count 249 (150-400) K/uL Neut % (Auto) 83 H (36-66) % Lymph % (Auto) 7 L (24-44) % [place] % (Auto) 9 H (2-6) % Eos % (Auto) 0 L (2-4) % Baso % (Auto) 0 (0-1) % Sodium 133 L (140-148) mmol/L Potassium 3.3 L (3.6-5.2) mmol/L Chloride 97 L (100-108) mmol/L Carbon Dioxide 30 (21-32) mmol/L Anion Gap 9.3 (5.0-14.0) mmol/L BUN 21 H (7-18) mg/dL Creatinine 1.0 (0.8-1.3) mg/dL Est Cr Clr Drug Dosing TNP Estimated GFR (MDRD) > 60 (>60) Glucose 150 H (74-106) mg/dL Calcium 9.3 (8.5-10.1) mg/dL Result Diagrams: 10/22/16 07:47 10/22/16 07:47 Imaging Impressions last 24 hrs: CXR - images personally reviewed - distended loops of small bowel especially in the right upper abdomen. No evidence for mass, congestive heart failure or infiltrate Abdominal x-ray - images also personally reviewed - there is gaseous distention of the entire small bowel concerning for ileus. No obvious air-fluid levels to suggest obstruction at this time. *Q Meaningful Use (ADM) - VTE *Q VTE Criteria *Q: VTE Pharmacological Contraindications *Q: Risk of Bleeding (Recent trauma and adrenal hematoma) - Stroke *Q Stroke Criteria *Q: - AMI *Q AMI Criteria *Q: - Problem List (1) Ileus SNOMED Code(s): 391371510 ICD Code: K56.7 - ILEUS, UNSPECIFIED Status: Acute Current Visit: Yes (2) Acute urinary retention SNOMED Code(s): 887087754 ICD Code: R33.8 - OTHER RETENTION OF URINE Status: Acute Current Visit: Yes (3) Fracture, ribs SNOMED Code(s): 13108496 ICD Code: S22.39XA - FRACTURE OF ONE RIB, UNSP SIDE, INIT FOR CLOS FX Status: Acute Current Visit: Yes Qualifiers: Encounter type: subsequent encounter Rib fracture type: multiple ribs Fracture type: closed Laterality: right Fracture healing: with routine healing Qualified Code(s): S22.41XD - Multiple fractures of ribs, right side, subsequent encounter for fracture with routine healing Problem List Initiated/Reviewed/Updated: Yes Orders Last 24hrs: Active Orders 24 hr Category Date Time Status Patient Status Manage Transfer [TRANSFER] Routine ADT 10/22/16 10:26 Ordered Sodium Chloride 0.9% [Normal Saline] 1,000 ml Med 10/22/16 07:45 Active IV ASDIRECTED Resuscitation Status Routine Resus Stat 10/22/16 10:29 Ordered Medication Orders Sodium Chloride (Normal Saline) 1,000 mls @ 500 mls/hr IV ASDIRECTED [facility]IAS Last Admin: 10/22/16 08:08 Dose: 500 mls/hr Assessment/Plan Comment:: Assessment and plan - Posttraumatic ileus - patient had a fall 2 days ago with trauma to the right side of his abdomen. He has since developed nausea and evidence for ileus. No evidence for obstruction at this time. -N.p.o. with ice chips -IV fluids -Repeat imaging in the morning Adrenal hematoma - no impressive abdominal pain at this time. Seems to be doing well with current pain medications. -Hemoglobin in the morning Right rib fractures - moderate pain but overall fairly well-controlled. This does limit his functional ability some. Pain control- Acute urinary retention - likely secondary to BPH. Brown catheter was placed last Saturday in outpatient followup as. Maintenance issues - - DVT prophylaxis - mechanical - GI prophylaxis - PPI - Nutrition - -n.p.o. with some ice chips - Brown catheter - indwelling Brown catheter placed 10/19 CODE STATUS - full code Admission justification - This patient will be admitted for inpatient services and is medically appropriate meeting medical necessity for inpatient admission as outlined in my documentation. I reasonably expect the patient will require inpatient services that span a period time over 2 midnights. I reasonably expect this patient to be discharged or transferred within 96 hours [facility]. Disposition - anticipate discharge to home after the hospital stay Primary care physician - Dr. Carlos Alberto Narvaez M.D.
[2016-10-22] MEDS ORDERED: Morphine 2 MG/ML Syringe IVPUSH PRN (11:10)
[2016-10-22] MEDS ORDERED: Ondansetron 4 MG Tab.DIS PO PRN (11:10)
[2016-10-22] MEDS ORDERED: METHOCARBAMOL 750 MG PO PRN (11:10)
[2016-10-22] MEDS ORDERED: Ondansetron 4 MG/2 ML SDV IV PRN (11:10)
[2016-10-22] MEDS ORDERED: LORazepam 2 MG/ML MDV IVPUSH PRN (11:10)
[2016-10-22] MEDS ORDERED: Morphine 4 MG/ML Syringe IV PRN (11:22)
[2016-10-22] MEDS ORDERED: Methocarbamol 500 MG Tab PO PRN (11:26)
[2016-10-22] MEDS: Dextrose 5%-0.9% NaCl 1,000 ML IV SCH ×2 (11:27→19:54)
[2016-10-22] MEDS ORDERED: Pantoprazole 40 MG Vial IV ONE (12:00)
[2016-10-22] MEDS: Bisacodyl 10 MG Supp RECTAL PRN (14:38)
[2016-10-22] MEDS: Potassium Chloride 20 MEQ, Lidocaine 1% 2 ML in Sodium Chloride 0.9% 100 ML IV SCH ×2 (15:48→17:53)
[2016-10-22] MEDS: Pravastatin 20 MG Tab PO SCH (20:52)
[2016-10-22] MEDS: Zolpidem 5 MG Tab PO SCH (20:52)
[2016-10-22] MEDS: Tamsulosin 0.4 MG Cap.ER PO SCH (20:53)
[2016-10-22] MEDS: Carbidopa/Levodopa 25-100 MG Tab PO SCH (20:53)
[2016-10-22] MEDS ORDERED: PRAVASTATIN SODIUM 40 MG PO SCH (21:00)
[2016-10-23] MEDS: Ketorolac 30 MG/ML SDV IVPUSH PRN (04:05)
[2016-10-23] MEDS: Losartan 50 MG Tab PO SCH (08:32)
[2016-10-23] MEDS ORDERED: Non-Formulary Medication 1 Each (Losartan [Cozaar] 100 MG) PO SCH (09:00)
[2016-10-23] MEDS ORDERED: Tamsulosin 0.4 MG Cap.ER PO SCH (09:00)
--- NOTE | 2016-10-23 09:26 | PCM.PN ---
- General Info Date of Service: 10/23/16 Functional Status: Reports: pain controlled, ambulating - Review of Systems Gastrointestinal: Denies: Abdominal pain, Nausea Systems Review Comment:: No acute events overnight. He did have some nausea after his clear liquids last night. No nausea or abdominal pain overnight. He did have one small liquid stool last night and is passing gas today. Abdominal x-ray looks better today as far as the ileus. The x-ray does notice right-sided subcutaneous emphysema. He feels well this morning. Only mild chest pain on the right side when he blows his nose. No complaints of shortness of breath. Not requiring supplemental oxygen. - Patient Data Vitals - most recent: Last Vital Signs Temp 38.0 C 10/23/16 07:00 Pulse 65 10/23/16 07:00 Resp 18 10/23/16 07:00 BP 141/77 H 10/23/16 08:32 Pulse Ox 91 L 10/23/16 07:00 Weight - most recent: 102 kg I&O - last 24 hours: Intake & Output 10/22/16 10/23/16 10/23/16 22:59 06:59 14:59 Intake Total 950 1256 Output Total 150 425 Balance 800 831 Lab Results last 24 hrs: Laboratory Results - last 24 hr 10/22/16 Range/Units 20:15 Urine Color [place] Urine Appearance Cloudy Urine pH 5.0 (4.5-8.0) Ur Specific [place] 1.020 (1.008-1.030) Urine Protein 30 H (NEGATIVE) mg/dL Urine Glucose (UA) Normal (NEGATIVE) mg/dL Urine Ketones Negative (NEGATIVE) mg/dL Urine Occult Blood Large (NEGATIVE) Urine Nitrite Negative (NEGAITVE) Urine Bilirubin Small (NEGATIVE) Urine Urobilinogen 1 (NORMAL) mg/dL Ur Leukocyte Esterase Small (NEGATIVE) Urine RBC 20-30 H (0-5) Urine WBC 5-10 H (0-5) Ur Epithelial Cells Few Amorphous Sediment Few Urine Bacteria Few Urine Mucus Moderate Med Orders - Current: Current Medications Acetaminophen (Tylenol) 650 mg PO Q4H PRN PRN Reason: Pain (Mild 1-3)/fever Hydrocodone Bitart/Acetaminophen ([place] 325-10 Mg) 1 tab PO Q4H PRN PRN Reason: Pain Bisacodyl (Dulcolax) 10 mg RECTAL DAILY PRN PRN Reason: Constipation Last Admin: 10/22/16 14:38 Dose: 10 mg Carbidopa/Levodopa (Sinemet 25-100 Mg) 1 tab PO BEDTIME [facility] Last Admin: 10/22/16 20:53 Dose: 1 tab Ketorolac Tromethamine (Toradol) 30 mg IVPUSH Q6H PRN PRN Reason: Pain (moderate 4-6) Stop: 10/27/16 11:11 Last Admin: 10/23/16 04:05 Dose: 30 mg Lorazepam (Ativan) 0.5 - 1 mg IVPUSH Q4H PRN PRN Reason: Nausea/Vomiting Losartan Potassium (Cozaar) 100 mg PO DAILY [facility] Last Admin: 10/23/16 08:32 Dose: 100 mg Methocarbamol (Robaxin) 750 mg PO QID PRN PRN Reason: MUSCLE SPASM Morphine Sulfate (Morphine) 4 - 8 mg IV Q2H PRN PRN Reason: SEVERE PAIN (7-10) Ondansetron HCl (Zofran Odt) 4 mg PO Q6H PRN PRN Reason: Nausea able to take PO Ondansetron HCl (Zofran) 4 mg IV Q6H PRN PRN Reason: Nausea/Vomiting Pravastatin Sodium (Pravachol) 40 mg PO BEDTIME [facility] Last Admin: 10/22/16 20:52 Dose: 40 mg Tamsulosin HCl (Flomax) 0.4 mg PO DAILY@2100 [facility] Last Admin: 10/22/16 20:53 Dose: 0.4 mg Zolpidem Tartrate (Ambien) 10 mg PO BEDTIME [facility] Last Admin: 10/22/16 20:52 Dose: 10 mg Discontinued Medications Hydrocodone Bitart/Acetaminophen ([place] 325-5 Mg) 1 tab PO ONETIME ONE Stop: 10/22/16 09:30 Last Admin: 10/22/16 09:44 Dose: Not Given Sodium Chloride (Normal Saline) 1,000 mls @ 500 mls/hr IV ASDIRECTED [facility] Last Admin: 10/22/16 08:08 Dose: 500 mls/hr Dextrose/Sodium Chloride (Dextrose 5%-Normal Saline) 1,000 mls @ 100 mls/hr IV ASDIRECTED [facility] Last Admin: 10/22/16 19:54 Dose: 100 mls/hr Potassium Chloride 20 meq/Lidocaine HCl 2 ml/ Sodium Chloride 112 mls @ 50 mls/ hr IV Q2H [facility] Stop: 10/22/16 18:59 Last Admin: 10/22/16 17:53 Dose: 50 mls/hr Ketorolac Tromethamine (Toradol) 30 mg IVPUSH ONETIME ONE Stop: 10/22/16 09:16 Last Admin: 10/22/16 09:20 Dose: 30 mg Ondansetron HCl (Zofran) 4 mg IVPUSH ONETIME ONE Stop: 10/22/16 07:46 Last Admin: 10/22/16 08:09 Dose: 4 mg Pantoprazole Sodium (Protonix Iv) 40 mg IV ONETIME ONE Stop: 10/22/16 12:01 Last Admin: 10/22/16 11:51 Dose: 40 mg Tamsulosin HCl (Flomax) 0.4 mg PO DAILY [facility] - Exam General: alert, oriented, cooperative, no acute distress Neck: supple Lungs: Normal respiratory effort Abdomen: bowel sounds present, soft, no tenderness, no distension Extremities: no edema Skin: warm, dry Psy/Mental Status: alert, normal affect - Problem List & Annotations (1) Ileus SNOMED Code(s): 642758979 Code(s): K56.7 - ILEUS, UNSPECIFIED Status: Acute Current Visit: Yes (2) Acute urinary retention SNOMED Code(s): 048759849 Code(s): R33.8 - OTHER RETENTION OF URINE Status: Acute Current Visit: Yes (3) Fracture, ribs SNOMED Code(s): 09851983 Code(s): S22.39XA - FRACTURE OF ONE RIB, UNSP SIDE, INIT FOR CLOS FX Status : Acute Current Visit: Yes Qualifiers: Encounter type: subsequent encounter Rib fracture type: multiple ribs Fracture type: closed Laterality: right Fracture healing: with routine healing Qualified Code(s): S22.41XD - Multiple fractures of ribs, right side, subsequent encounter for fracture with routine healing (4) Pneumothorax, right SNOMED Code(s): 428896356 Code(s): J93.9 - PNEUMOTHORAX, UNSPECIFIED Status: Acute Current Visit: Yes - Problem List Review Problem List Initiated/Reviewed/Updated: Yes - My Orders Last 24 Hours: My Active Orders 10/22/16 10:29 Resuscitation Status Routine 10/22/16 11:10 Patient Status [ADT] Routine Intake and Output [RC] QSHIFT Notify Provider Vital Signs [RC] ASDIRECTED Oxygen Therapy [RC] PRN Up ad [place] [RC] ASDIRECTED VTE/DVT Education [RC] Per Unit Routine Vital Signs [RC] Q4H Acetaminophen [Tylenol] 650 mg PO Q4H PRN Bisacodyl [Dulcolax] 10 mg RECTAL DAILY PRN Ketorolac [Toradol] 30 mg IVPUSH Q6H PRN LORazepam [Ativan] 0.5 - 1 mg IVPUSH Q4H PRN Ondansetron [Zofran ODT] 4 mg PO Q6H PRN Ondansetron [Zofran] 4 mg IV Q6H PRN Sequential Compression Device [OM.PC] Per Unit Routine VTE Pharmacological Contraindications [AST] Per Unit Routine 10/22/16 11:22 Morphine 4 - 8 mg IV Q2H PRN 10/22/16 11:26 Methocarbamol [Robaxin] 750 mg PO QID PRN 10/22/16 21:00 Pravastatin [Pravachol] 40 mg PO BEDTIME Tamsulosin [Flomax] 0.4 mg PO DAILY@2100 10/23/16 05:11 Abdomen 2V AP Flat Upright [CR] AM 10/23/16 09:00 Losartan [Cozaar] 100 mg PO DAILY 10/23/16 09:24 Convert IV to Saline Lock [OM.PC] Routine 10/23/16 Breakfast Clear Liquid Diet [DIET] 10/23/16 Lunch Full Liquid Diet [DIET] 10/24/16 05:00 BASIC METABOLIC PANEL,BMP [CHEM] Timed CBC W/O DIFF,HEMOGRAM [HEME] Timed (1) - Plan Plan:: Assessment and plan - Posttraumatic ileus - patient had a fall 2 days ago, suspect the ileus is caused by this. Seems to be resolving at this time. -Clear liquids this morning, advance as tolerated -Saline lock IV fluids Right pneumothorax -very small, likely secondary to recent trauma as well. Not needing supplemental oxygen. No indication for chest tube at this time. -Chest x-ray the morning Adrenal hematoma - no impressive abdominal pain at this time. Seems to be doing well with current pain medications. -Hemoglobin in the morning Right rib fractures - moderate pain but overall fairly well-controlled. This does limit his functional ability some. Pain control- Acute urinary retention - likely secondary to BPH. Brown catheter was placed last Saturday in outpatient followup as. Maintenance issues - - DVT prophylaxis - mechanical - GI prophylaxis - PPI - Nutrition - Clear liquids, advance as tolerated - Brown catheter - indwelling Brown catheter placed 10/19 Disposition - anticipate discharge to home after the hospital stay, hopefully tomorrow Tate Narvaez M.D.
--- NOTE | 2016-10-23 09:41 | CR ---
2 view abdomen Comparison: Previous day. Findings: There has been interval development of subcutaneous emphysema involving the right lateral chest wall extending inferiorly involving the right lateral abdominal wall. There are right rib frac tures. There may be a pneumothorax on the right. There is mild interval decrease in caliber of distended loops of bowel. There continues to be retain ed contrast within the right colon. There is no free air in the abdomen. Impression: 1. Subcutaneous emphysema on the right. Recommend further evaluation with a chest x-ray. 2. Mild interval decrease in caliber of distended loops of bowel. Health care provider notified of findings at time of dictation.
--- NOTE | 2016-10-23 10:13 | CR ---
Two-view chest Comparison: Previous day. Findings: There has been interval development of a small right apical pneumothorax. The lung apex is from the chest wall by approximately 1.5 cm. There has been development of subcutaneous e mphysema along the right lateral chest wall. Again noted are fractures involving the lower right rib s. There is no significant effusion. The left lung is unremarkable. Impression: 1. Small left apical pneumothorax with development of right chest wall subcutaneous emphysema.
--- NOTE | 2016-10-23 12:36 | CR ---
Portable chest Comparison: Earlier same day. Findings: There is a very small right apical pneumothorax. There is no interval progression. Right c hest wall subcutaneous emphysema is again noted. The heart and vascular structures are stable. Impression: 1. Very small right apical pneumothorax without significant change.
[2016-10-23] MEDS: Tamsulosin 0.4 MG Cap.ER PO SCH (21:11)
[2016-10-23] MEDS: Carbidopa/Levodopa 25-100 MG Tab PO SCH (21:11)
[2016-10-23] MEDS: Zolpidem 5 MG Tab PO SCH (21:11)
[2016-10-23] MEDS: Pravastatin 20 MG Tab PO SCH (21:11)
[2016-10-24] MEDS: Ketorolac 30 MG/ML SDV IVPUSH PRN (00:39)
[2016-10-24] MEDS: Losartan 50 MG Tab PO SCH (08:20)
--- NOTE | 2016-10-24 09:04 | CR ---
Portable chest Comparison: Previous day. Findings: There has been significant interval increase in size of the right pneumothorax. There is l ikely approximately 40% collapse of the right lung. The right lung apex is now from the ch est wall by approximately 5.8 cm. The left lung is stable. The heart and vascular structures are unc hanged. There is subcutaneous emphysema along the right chest wall and base of the neck. Depression: 1. Interval increase in size of right pneumothorax.
--- NOTE | 2016-10-24 09:20 | PCM.PN ---
- General Info Date of Service: 10/24/16 Functional Status: Reports: pain controlled, tolerating diet, ambulating - Review of Systems Pulmonary: Denies: shortness of breath Systems Review Comment:: No acute events overnight. Tolerating diet well with no nausea. No complaints of chest pain or shortness of breath. Rib fracture pain controlled using only nonsteroidal anti-inflammatory medications. No fevers or hypoxia. - Patient Data Vitals - most recent: Last Vital Signs Temp 37.7 C 10/24/16 07:19 Pulse 76 10/24/16 07:19 Resp 20 10/24/16 07:19 BP 157/90 H 10/24/16 08:20 Pulse Ox 92 L 10/24/16 07:19 Weight - most recent: 102 kg I&O - last 24 hours: Intake & Output 10/23/16 10/24/16 10/24/16 22:59 06:59 14:59 Intake Total 300 200 300 Output Total 800 750 Balance -500 -550 300 Lab Results last 24 hrs: Laboratory Results - last 24 hr 10/24/16 10/24/16 Range/Units 05:00 05:00 WBC 10.0 (4.5-11.0) K/uL RBC 3.95 L (4.30-5.90) M/uL Hgb 12.7 (12.0-15.0) g/dL Hct 37.2 L (40.0-54.0) % MCV 94 (80-98) fL MCH 32 H (27-31) pg MCHC 34 (32-36) % Plt Count 224 (150-400) K/uL Sodium 137 L (140-148) mmol/L Potassium 3.0 L (3.6-5.2) mmol/L Chloride 104 (100-108) mmol/L Carbon Dioxide 26 (21-32) mmol/L Anion Gap 10.0 (5.0-14.0) mmol/L BUN 21 H (7-18) mg/dL Creatinine 0.8 (0.8-1.3) mg/dL Est Cr Clr Drug Dosing 82.83 mL/min Estimated GFR (MDRD) > 60 (>60) Glucose 93 (74-106) mg/dL Calcium 7.6 L D (8.5-10.1) mg/dL Med Orders - Current: Current Medications Acetaminophen (Tylenol) 650 mg PO Q4H PRN PRN Reason: Pain (Mild 1-3)/fever Hydrocodone Bitart/Acetaminophen ([place] 325-10 Mg) 1 tab PO Q4H PRN PRN Reason: Pain Bisacodyl (Dulcolax) 10 mg RECTAL DAILY PRN PRN Reason: Constipation Last Admin: 10/22/16 14:38 Dose: 10 mg Carbidopa/Levodopa (Sinemet 25-100 Mg) 1 tab PO BEDTIME [facility] Last Admin: 10/23/16 21:11 Dose: 1 tab Ketorolac Tromethamine (Toradol) 30 mg IVPUSH Q6H PRN PRN Reason: Pain (moderate 4-6) Stop: 10/27/16 11:11 Last Admin: 10/24/16 00:39 Dose: 30 mg Lorazepam (Ativan) 0.5 - 1 mg IVPUSH Q4H PRN PRN Reason: Nausea/Vomiting Losartan Potassium (Cozaar) 100 mg PO DAILY [facility] Last Admin: 10/24/16 08:20 Dose: 100 mg Methocarbamol (Robaxin) 750 mg PO QID PRN PRN Reason: MUSCLE SPASM Morphine Sulfate (Morphine) 4 - 8 mg IV Q2H PRN PRN Reason: SEVERE PAIN (7-10) Ondansetron HCl (Zofran Odt) 4 mg PO Q6H PRN PRN Reason: Nausea able to take PO Ondansetron HCl (Zofran) 4 mg IV Q6H PRN PRN Reason: Nausea/Vomiting Potassium Chloride (Klor-Con M20) 40 meq PO BID [facility] Pravastatin Sodium (Pravachol) 40 mg PO BEDTIME [facility] Last Admin: 10/23/16 21:11 Dose: 40 mg Tamsulosin HCl (Flomax) 0.4 mg PO DAILY@2100 [facility] Last Admin: 10/23/16 21:11 Dose: 0.4 mg Zolpidem Tartrate (Ambien) 10 mg PO BEDTIME [facility] Last Admin: 10/23/16 21:11 Dose: 10 mg Discontinued Medications Hydrocodone Bitart/Acetaminophen ([place] 325-5 Mg) 1 tab PO ONETIME ONE Stop: 10/22/16 09:30 Last Admin: 10/22/16 09:44 Dose: Not Given Sodium Chloride (Normal Saline) 1,000 mls @ 500 mls/hr IV ASDIRECTED [facility] Last Admin: 10/22/16 08:08 Dose: 500 mls/hr Dextrose/Sodium Chloride (Dextrose 5%-Normal Saline) 1,000 mls @ 100 mls/hr IV ASDIRECTED [facility] Last Admin: 10/22/16 19:54 Dose: 100 mls/hr Potassium Chloride 20 meq/Lidocaine HCl 2 ml/ Sodium Chloride 112 mls @ 50 mls/ hr IV Q2H [facility] Stop: 10/22/16 18:59 Last Admin: 10/22/16 17:53 Dose: 50 mls/hr Ketorolac Tromethamine (Toradol) 30 mg IVPUSH ONETIME ONE Stop: 10/22/16 09:16 Last Admin: 10/22/16 09:20 Dose: 30 mg Ondansetron HCl (Zofran) 4 mg IVPUSH ONETIME ONE Stop: 10/22/16 07:46 Last Admin: 10/22/16 08:09 Dose: 4 mg Pantoprazole Sodium (Protonix Iv) 40 mg IV ONETIME ONE Stop: 10/22/16 12:01 Last Admin: 10/22/16 11:51 Dose: 40 mg Tamsulosin HCl (Flomax) 0.4 mg PO DAILY [facility] - Exam Quality Assessment: No: supplemental oxygen General: alert, oriented, cooperative, no acute distress Neck: supple Lungs: Clear to auscultation, Normal respiratory effort, Decreased breath sounds (right upper chest) Cardiovascular: Regular Rate, Regular Rhythm Abdomen: soft, no distension Extremities: no edema, no cyanosis Skin: warm, dry - Problem List & Annotations (1) Ileus SNOMED Code(s): 346048843 Code(s): K56.7 - ILEUS, UNSPECIFIED Status: Acute Current Visit: Yes (2) Acute urinary retention SNOMED Code(s): 094800744 Code(s): R33.8 - OTHER RETENTION OF URINE Status: Acute Current Visit: Yes (3) Fracture, ribs SNOMED Code(s): 54157855 Code(s): S22.39XA - FRACTURE OF ONE RIB, UNSP SIDE, INIT FOR CLOS FX Status : Acute Current Visit: Yes Qualifiers: Encounter type: subsequent encounter Rib fracture type: multiple ribs Fracture type: closed Laterality: right Fracture healing: with routine healing Qualified Code(s): S22.41XD - Multiple fractures of ribs, right side, subsequent encounter for fracture with routine healing (4) Pneumothorax, right SNOMED Code(s): 374796186 Code(s): J93.9 - PNEUMOTHORAX, UNSPECIFIED Status: Acute Current Visit: Yes - Problem List Review Problem List Initiated/Reviewed/Updated: Yes - My Orders Last 24 Hours: My Active Orders 10/23/16 09:00 Losartan [Cozaar] 100 mg PO DAILY 10/23/16 09:24 Convert IV to Saline Lock [OM.PC] Routine 10/23/16 Dinner Mechanical Soft Diet [DIET] 10/24/16 08:19 Notify Provider Consults [RC] ASDIRECTED Consult to Physician [CONS] Routine 10/24/16 09:00 Potassium Chloride [Klor-Con M20] 40 meq PO BID 10/25/16 05:00 Chest 1V Frontal [CR] Timed BASIC METABOLIC PANEL,BMP [CHEM] Timed - Plan Plan:: Assessment and plan - Posttraumatic ileus - patient had a fall 2 days before admission, suspect the ileus is caused by this. Seems to be have resolved at this time. -Mechanical soft diet -Saline lock IV fluids Right pneumothorax - pneumothorax has progressed overnight based on followup imaging this morning. Pneumothorax now occupies approximately 30% or more of the right thoracic cavity area. -Consult Dr Olivarez to consider chest tube placement -Chest x-ray the morning Adrenal hematoma - no impressive abdominal pain at this time. Seems to be doing well with current pain medications. Hemoglobin stable. -Hemoglobin in the morning Right rib fractures - mild to moderate pain, no longer provides any major limitations. Pain has been well-controlled. -Pain control Acute urinary retention - likely secondary to BPH. Brown catheter was placed last Saturday in outpatient followup setting. -Continue Brown catheter was outpatient management Maintenance issues - - DVT prophylaxis - mechanical - GI prophylaxis - PPI - Nutrition - mechanical soft - Brown catheter - indwelling Brown catheter placed 10/19 Disposition - anticipate discharge to home after the hospital stay Tate Narvaez M.D.
[2016-10-24] MEDS: Potassium Chloride 20 MEQ Tab.ER PO SCH ×2 (09:29→20:55)
[2016-10-24] MEDS: Acetaminophen/HYDROcodone 325-10 MG Tab PO PRN ×2 (12:35→21:00)
[2016-10-24] MEDS ORDERED: Bacitracin Oint 1 GM U/D Packet TOP ONE (14:04)
[2016-10-24] MEDS: Pravastatin 20 MG Tab PO SCH (20:54)
[2016-10-24] MEDS: Carbidopa/Levodopa 25-100 MG Tab PO SCH (20:55)
[2016-10-24] MEDS: Tamsulosin 0.4 MG Cap.ER PO SCH (20:55)
[2016-10-24] MEDS: Zolpidem 5 MG Tab PO SCH (20:59)
[2016-10-25] MEDS: Acetaminophen/HYDROcodone 325-10 MG Tab PO PRN ×2 (01:56→07:37)
--- NOTE | 2016-10-25 07:33 | OR ---
DATE OF PROCEDURE: 10/24/2016 PREOPERATIVE DIAGNOSIS: Right traumatic pneumothorax. POSTOPERATIVE DIAGNOSIS: Right traumatic pneumothorax. PROCEDURE: Right chest tube placement, 28-Cymraes. ANESTHESIA: Lidocaine plain 1%. INDICATION: This 81-year-old white male passed out in the bathroom a few days ago. He presents to the emergency room and was admitted, CAT scan was reportedly negative. He injured his right chest. Yesterday, on chest x-ray, he was noted to have a small pneumothorax. Today, it is much larger, request was made for a right chest tube placement. I counseled him for a right chest tube placement including risks and alternatives, and he gave his informed consent to proceed. DESCRIPTION OF PROCEDURE: The patient's right chest was prepped and draped in the usual sterile fashion. 1% plain lidocaine was infiltrated along the anterior axillary line at about the areolar complex level. An oblique incision was made at this point and blunt and sharp dissection went into the next superior rib, we coursed over the rib and entered the chest. The whole area was anesthetized to do this. We obtained a gush of air. A 28- Cymraes straight chest tube was then introduced into the chest and was anchored with #1 Ethibond suture. A sterile dressing was then placed. The chest tube was placed to 20 cm water suction. Chest x-ray shows the pneumothorax to be resolved and the tube to be well within the chest. He tolerated the procedure well. Steve Olivarez MD /[id number] MTDFrancisco J
[2016-10-25] MEDS: Docusate Sodium 100 MG Cap PO SCH ×2 (08:51→20:46)
[2016-10-25] MEDS: Losartan 50 MG Tab PO SCH (08:51)
[2016-10-25] MEDS: Potassium Chloride 20 MEQ Tab.ER PO SCH (08:52)
--- NOTE | 2016-10-25 09:25 | CR ---
Portable chest Comparison: Earlier same day. Findings: There has been interval placement of a right chest tube. There is reexpansion of the right lung. No significant residual pneumothorax is visualized. There is increase of right chest wall emp hysema. The heart and vascular structures are stable. Impression: 1. Resolution of right pneumothorax following chest tube placement.
--- NOTE | 2016-10-25 09:26 | CR ---
Portable chest Comparison: Previous day. Findings: There is a right chest tube unchanged. There is no pneumothorax. The left lung is stable. There is right chest wall emphysema. Impression: 1. Right chest tube. No evidence for pneumothorax.
--- NOTE | 2016-10-25 10:44 | PCM.PN ---
- General Info Date of Service: 10/25/16 Functional Status: Reports: pain controlled, ambulating - Review of Systems Pulmonary: Denies: shortness of breath Cardiovascular: Reports: Chest Pain Systems Review Comment:: No acute events overnight. Mild hypoxia overnight. Some pain where the chest tube was inserted. No pleuritic chest pain, abdominal pain or vomiting. Not much in the way of bowel movements. Appetite has been okay but he fills up quickly. No fevers. - Patient Data Vitals - most recent: Last Vital Signs Temp 37.4 C 10/25/16 07:10 Pulse 69 10/25/16 07:10 Resp 16 10/25/16 07:10 BP 167/101 H 10/25/16 08:51 Pulse Ox 92 L 10/25/16 07:29 Weight - most recent: 102 kg I&O - last 24 hours: Intake & Output 10/24/16 10/25/16 10/25/16 22:59 06:59 14:59 Intake Total 240 600 Output Total 650 770 Balance -650 -530 600 Lab Results last 24 hrs: Laboratory Results - last 24 hr 10/25/16 Range/Units 05:00 Sodium 140 (140-148) mmol/L Potassium 3.9 (3.6-5.2) mmol/L Chloride 104 (100-108) mmol/L Carbon Dioxide 28 (21-32) mmol/L Anion Gap 8.4 (5.0-14.0) mmol/L BUN 22 H (7-18) mg/dL Creatinine 1.0 (0.8-1.3) mg/dL Est Cr Clr Drug Dosing 66.27 mL/min Estimated GFR (MDRD) > 60 (>60) Glucose 99 (74-106) mg/dL Calcium 7.7 L (8.5-10.1) mg/dL Med Orders - Current: Current Medications Acetaminophen (Tylenol) 650 mg PO Q4H PRN PRN Reason: Pain (Mild 1-3)/fever Hydrocodone Bitart/Acetaminophen ([place] 325-10 Mg) 0.5 tab PO Q4H PRN PRN Reason: Pain Bisacodyl (Dulcolax) 10 mg RECTAL DAILY PRN PRN Reason: Constipation Last Admin: 10/22/16 14:38 Dose: 10 mg Carbidopa/Levodopa (Sinemet 25-100 Mg) 1 tab PO BEDTIME [facility] Last Admin: 10/24/16 20:55 Dose: 1 tab Docusate Sodium (Colace) 100 mg PO BID [facility] Last Admin: 10/25/16 08:51 Dose: 100 mg Ketorolac Tromethamine (Toradol) 30 mg IVPUSH Q6H PRN PRN Reason: Pain (moderate 4-6) Stop: 10/27/16 11:11 Last Admin: 10/24/16 00:39 Dose: 30 mg Lorazepam (Ativan) 0.5 - 1 mg IVPUSH Q4H PRN PRN Reason: Nausea/Vomiting Losartan Potassium (Cozaar) 100 mg PO DAILY [facility] Last Admin: 10/25/16 08:51 Dose: 100 mg Methocarbamol (Robaxin) 750 mg PO QID PRN PRN Reason: MUSCLE SPASM Ondansetron HCl (Zofran Odt) 4 mg PO Q6H PRN PRN Reason: Nausea able to take PO Ondansetron HCl (Zofran) 4 mg IV Q6H PRN PRN Reason: Nausea/Vomiting Pravastatin Sodium (Pravachol) 40 mg PO BEDTIME [facility] Last Admin: 10/24/16 20:54 Dose: 40 mg Tamsulosin HCl (Flomax) 0.4 mg PO DAILY@2100 [facility] Last Admin: 10/24/16 20:55 Dose: 0.4 mg Zolpidem Tartrate (Ambien) 10 mg PO BEDTIME [facility] Last Admin: 10/24/16 20:59 Dose: 10 mg Discontinued Medications Hydrocodone Bitart/Acetaminophen ([place] 325-5 Mg) 1 tab PO ONETIME ONE Stop: 10/22/16 09:30 Last Admin: 10/22/16 09:44 Dose: Not Given Hydrocodone Bitart/Acetaminophen ([place] 325-10 Mg) 1 tab PO Q4H PRN PRN Reason: Pain Last Admin: 10/25/16 07:37 Dose: 1 tab Bacitracin (Bacitracin Oint 1 Gm) 1 dose TOP ONETIME ONE Stop: 10/24/16 14:05 Last Admin: 10/24/16 14:20 Dose: 4 dose Sodium Chloride (Normal Saline) 1,000 mls @ 500 mls/hr IV ASDIRECTED [facility] Last Admin: 10/22/16 08:08 Dose: 500 mls/hr Dextrose/Sodium Chloride (Dextrose 5%-Normal Saline) 1,000 mls @ 100 mls/hr IV [facility] Last Admin: 10/22/16 19:54 Dose: 100 mls/hr Potassium Chloride 20 meq/Lidocaine HCl 2 ml/ Sodium Chloride 112 mls @ 50 mls/ hr IV Q2H [facility] Stop: 10/22/16 18:59 Last Admin: 10/22/16 17:53 Dose: 50 mls/hr Ketorolac Tromethamine (Toradol) 30 mg IVPUSH ONETIME ONE Stop: 10/22/16 09:16 Last Admin: 10/22/16 09:20 Dose: 30 mg Lidocaine HCl (Xylocaine-Mpf 1%) 10 ml INJECT ONETIME ONE Stop: 10/24/16 12:21 Last Admin: 10/24/16 14:20 Dose: 10 ml Lidocaine HCl (Xylocaine-Mpf 1%) Confirm Administered Dose 10 ml .ROUTE .STK- MED ONE Stop: 10/24/16 14:29 Last Admin: 10/24/16 14:20 Dose: 10 ml Morphine Sulfate (Morphine) 4 - 8 mg IV Q2H PRN PRN Reason: SEVERE PAIN (7-10) Ondansetron HCl (Zofran) 4 mg IVPUSH ONETIME ONE Stop: 10/22/16 07:46 Last Admin: 10/22/16 08:09 Dose: 4 mg Pantoprazole Sodium (Protonix Iv) 40 mg IV ONETIME ONE Stop: 10/22/16 12:01 Last Admin: 10/22/16 11:51 Dose: 40 mg Potassium Chloride (Klor-Con M20) 40 meq PO BID [facility] Last Admin: 10/25/16 08:52 Dose: 40 meq Tamsulosin HCl (Flomax) 0.4 mg PO DAILY [facility] - Exam Quality Assessment: urine catheter. No: supplemental oxygen General: alert, oriented, cooperative, no acute distress Lungs: Clear to auscultation, Normal respiratory effort. No: Wheezing Cardiovascular: Regular Rate, Regular Rhythm Abdomen: soft, no distension Extremities: no edema, no cyanosis Skin: warm, dry Psy/Mental Status: alert, normal affect - Problem List & Annotations (1) Ileus SNOMED Code(s): 277271074 Code(s): K56.7 - ILEUS, UNSPECIFIED Status: Acute Current Visit: Yes (2) Acute urinary retention SNOMED Code(s): 339744171 Code(s): R33.8 - OTHER RETENTION OF URINE Status: Acute Current Visit: Yes (3) Fracture, ribs SNOMED Code(s): 50890548 Code(s): S22.39XA - FRACTURE OF ONE RIB, UNSP SIDE, INIT FOR CLOS FX Status : Acute Current Visit: Yes Qualifiers: Encounter type: subsequent encounter Rib fracture type: multiple ribs Fracture type: closed Laterality: right Fracture healing: with routine healing Qualified Code(s): S22.41XD - Multiple fractures of ribs, right side, subsequent encounter for fracture with routine healing (4) Pneumothorax, right SNOMED Code(s): 705707252 Code(s): J93.9 - PNEUMOTHORAX, UNSPECIFIED Status: Acute Current Visit: Yes - Problem List Review Problem List Initiated/Reviewed/Updated: Yes - My Orders Last 24 Hours: My Active Orders 10/25/16 10:45 Acetaminophen/HYDROcodone [[place] 325-10 MG] 0.5 tab PO Q4H PRN - Plan Plan:: Assessment and plan - Posttraumatic ileus - patient had a fall 2 days before admission, suspect the ileus is caused by this. Seems to be improving but no large bowel movement as of yet. -Bowel stimulation -Mechanical soft diet -Saline lock IV fluids Traumatic right pneumothorax - status post chest tube placement on 10/24. X-ray today did not show residual pneumothorax. Minimal chest tube drainage. -Chest tube care as per Dr Olivarez -Chest x-ray the morning Adrenal hematoma - no impressive abdominal pain at this time. Seems to be doing well with current pain medications. Hemoglobin stable. -Hemoglobin in the morning Right rib fractures - mild to moderate pain, no longer provides any major limitations. Pain has been well-controlled. -Pain control with acetaminophen, nonsteroidals and 1/2 tablet of hydrocodone Acute urinary retention - likely secondary to BPH. Brown catheter was placed last Saturday in outpatient followup setting. -Continue Brown catheter was outpatient management Maintenance issues - - DVT prophylaxis - mechanical - GI prophylaxis - PPI - Nutrition - mechanical soft - Brown catheter - indwelling Brown catheter placed 10/19 Disposition - anticipate discharge to home after the hospital stay Tate Narvaez M.D.
[2016-10-25] MEDS: Acetaminophen 325 MG Tab PO PRN ×2 (11:31→15:41)
[2016-10-25] MEDS ORDERED: Polyethylene Glycol 3350 Powder 17 GM Packet PO PRN (13:58)
[2016-10-25] MEDS ORDERED: Magnesium Hydroxide 400 MG/5 ML Susp 30 ML Cup PO PRN (13:58)
[2016-10-25] MEDS: Bisacodyl 10 MG Supp RECTAL PRN (15:19)
[2016-10-25] MEDS: Tamsulosin 0.4 MG Cap.ER PO SCH (20:46)
[2016-10-25] MEDS: Carbidopa/Levodopa 25-100 MG Tab PO SCH (20:46)
[2016-10-25] MEDS: Pravastatin 20 MG Tab PO SCH (20:46)
[2016-10-25] MEDS: Zolpidem 5 MG Tab PO SCH (21:31)
[2016-10-26] MEDS: Acetaminophen/HYDROcodone 325-10 MG Tab PO PRN (02:42)
[2016-10-26] MEDS: Docusate Sodium 100 MG Cap PO SCH ×2 (08:34→20:45)
[2016-10-26] MEDS: Losartan 50 MG Tab PO SCH (08:34)
--- NOTE | 2016-10-26 09:15 | CR ---
Portable chest Comparison: Previous day. There is a right chest tube is unchanged position. There is no pneumothorax visualized. There is rig ht chest wall subcutaneous emphysema. The heart and vascular structures are stable. Impression: 1. Right chest tube unchanged. No significant pneumothorax.
--- NOTE | 2016-10-26 11:22 | PCM.SURGPN ---
- General Info Date of Service: 10/25/16 POD#: 1 Post-Op Diagnosis: Right pneumothorax Functional Status: Reports: pain controlled - Review of Systems General: Reports: No Symptoms HEENT: Reports: no symptoms Pulmonary: Reports: no symptoms Cardiovascular: Reports: No Symptoms Gastrointestinal: Reports: No symptoms Genitourinary: Reports: no symptoms Musculoskeletal: Reports: no symptoms Skin: Reports: no symptoms Neurological: Reports: No Symptoms Psychiatric: Reports: no symptoms - Patient Data Vitals - most recent: Last Vital Signs Temp 99.2 F 10/26/16 08:29 Pulse 75 10/26/16 08:29 Resp 18 10/26/16 08:29 BP 103/72 10/26/16 08:34 Pulse Ox 94 L 10/26/16 08:29 Weight - most recent: 224 lb 13.944 oz I&O - last 24 hours: Intake & Output 10/25/16 10/26/16 10/26/16 22:59 06:59 14:59 Intake Total 580 200 320 Output Total 450 910 Balance 130 -710 320 Med Orders - Current: Current Medications Acetaminophen (Tylenol) 650 mg PO Q4H PRN PRN Reason: Pain (Mild 1-3)/fever Last Admin: 10/25/16 15:41 Dose: 650 mg Hydrocodone Bitart/Acetaminophen ([place] 325-10 Mg) 0.5 tab PO Q4H PRN PRN Reason: Pain Last Admin: 10/26/16 02:42 Dose: 0.5 tab Bisacodyl (Dulcolax) 10 mg RECTAL DAILY PRN PRN Reason: Constipation Last Admin: 10/25/16 15:19 Dose: 10 mg Carbidopa/Levodopa (Sinemet 25-100 Mg) 1 tab PO BEDTIME [facility] Last Admin: 10/25/16 20:46 Dose: 1 tab Docusate Sodium (Colace) 100 mg PO BID [facility] Last Admin: 10/26/16 08:34 Dose: 100 mg Ketorolac Tromethamine (Toradol) 30 mg IVPUSH Q6H PRN PRN Reason: Pain (moderate 4-6) Stop: 10/27/16 11:11 Last Admin: 10/24/16 00:39 Dose: 30 mg Lorazepam (Ativan) 0.5 - 1 mg IVPUSH Q4H PRN PRN Reason: Nausea/Vomiting Losartan Potassium (Cozaar) 100 mg PO DAILY [facility] Last Admin: 10/26/16 08:34 Dose: 100 mg Magnesium Hydroxide (Milk Of Magnesia) 30 ml PO BID PRN PRN Reason: Constipation Methocarbamol (Robaxin) 750 mg PO QID PRN PRN Reason: MUSCLE SPASM Ondansetron HCl (Zofran Odt) 4 mg PO Q6H PRN PRN Reason: Nausea able to take PO Ondansetron HCl (Zofran) 4 mg IV Q6H PRN PRN Reason: Nausea/Vomiting Polyethylene Glycol (Miralax) 17 gm PO BID PRN PRN Reason: Constipation Pravastatin Sodium (Pravachol) 40 mg PO BEDTIME [facility] Last Admin: 10/25/16 20:46 Dose: 40 mg Tamsulosin HCl (Flomax) 0.4 mg PO DAILY@2100 [facility] Last Admin: 10/25/16 20:46 Dose: 0.4 mg Zolpidem Tartrate (Ambien) 10 mg PO BEDTIME [facility] Last Admin: 10/25/16 21:31 Dose: 10 mg Discontinued Medications Hydrocodone Bitart/Acetaminophen ([place] 325-5 Mg) 1 tab PO ONETIME ONE Stop: 10/22/16 09:30 Last Admin: 10/22/16 09:44 Dose: Not Given Hydrocodone Bitart/Acetaminophen ([place] 325-10 Mg) 1 tab PO Q4H PRN PRN Reason: Pain Last Admin: 10/25/16 07:37 Dose: 1 tab Bacitracin (Bacitracin Oint 1 Gm) 1 dose TOP ONETIME ONE Stop: 10/24/16 14:05 Last Admin: 10/24/16 14:20 Dose: 4 dose Sodium Chloride (Normal Saline) 1,000 mls @ 500 mls/hr IV ASDIRECTED [facility] Last Admin: 10/22/16 08:08 Dose: 500 mls/hr Dextrose/Sodium Chloride (Dextrose 5%-Normal Saline) 1,000 mls @ 100 mls/hr IV ASDIRECTED [facility] Last Admin: 10/22/16 19:54 Dose: 100 mls/hr Potassium Chloride 20 meq/Lidocaine HCl 2 ml/ Sodium Chloride 112 mls @ 50 mls/ hr IV Q2H [facility] Stop: 10/22/16 18:59 Last Admin: 10/22/16 17:53 Dose: 50 mls/hr Ketorolac Tromethamine (Toradol) 30 mg IVPUSH ONETIME ONE Stop: 10/22/16 09:16 Last Admin: 10/22/16 09:20 Dose: 30 mg Lidocaine HCl (Xylocaine-Mpf 1%) 10 ml INJECT ONETIME ONE Stop: 10/24/16 12:21 Last Admin: 10/24/16 14:20 Dose: 10 ml Lidocaine HCl (Xylocaine-Mpf 1%) Confirm Administered Dose 10 ml .ROUTE .STK- MED ONE Stop: 10/24/16 14:29 Last Admin: 10/24/16 14:20 Dose: 10 ml Morphine Sulfate (Morphine) 4 - 8 mg IV Q2H PRN PRN Reason: SEVERE PAIN (7-10) Ondansetron HCl (Zofran) 4 mg IVPUSH ONETIME ONE Stop: 10/22/16 07:46 Last Admin: 10/22/16 08:09 Dose: 4 mg Pantoprazole Sodium (Protonix Iv) 40 mg IV ONETIME ONE Stop: 10/22/16 12:01 Last Admin: 10/22/16 11:51 Dose: 40 mg Potassium Chloride (Klor-Con M20) 40 meq PO BID [facility] Last Admin: 10/25/16 08:52 Dose: 40 meq Tamsulosin HCl (Flomax) 0.4 mg PO DAILY [facility] - Exam Wound/Incisions: no drainage General: alert, oriented, cooperative, no acute distress Lungs: Clear to auscultation, Normal respiratory effort, Other (Right crepitus) Cardiovascular: Regular Rate, Regular Rhythm Abdomen: bowel sounds present, soft, no tenderness, no distension Extremities: no edema Skin: warm, dry, intact Neurological: no new focal deficit Psy/Mental Status: alert, normal affect, normal mood - Problem List & Annotations (1) Pneumothorax, right SNOMED Code(s): 765106564 Code(s): J93.9 - PNEUMOTHORAX, UNSPECIFIED Status: Acute Current Visit: Yes - Problem List Review Problem List Initiated/Reviewed/Updated: Yes - My Orders Last 24 Hours: Active Orders 24 hr Category Date Time Status Chest Tube Management [RC] ASDIRECTED Care 10/26/16 11:17 Ordered Chest 1V Frontal [CR] DAILY Exams 10/27/16 05:00 Ordered Chest 1V Frontal [CR] DAILY Exams 10/28/16 05:00 Ordered Chest 1V Frontal [CR] DAILY Exams 10/29/16 05:00 Ordered Chest 1V Frontal [CR] DAILY Exams 10/30/16 05:00 Ordered Acetaminophen/HYDROcodone [[place] 325-10 MG] Med 10/25/16 10:45 Active 0.5 tab PO Q4H PRN Magnesium Hydroxide [Milk of Magnesia] Med 10/25/16 13:58 Active 30 ml PO BID PRN Polyethylene Glycol 3350 [MiraLAX] Med 10/25/16 13:58 Active 17 gm PO BID PRN Medication Orders Acetaminophen (Tylenol) 650 mg PO Q4H PRN PRN Reason: Pain (Mild 1-3)/fever Last Admin: 10/25/16 15:41 Dose: 650 mg Admin: 10/25/16 11:31 Dose: 650 mg Hydrocodone Bitart/Acetaminophen ([place] 325-10 Mg) 0.5 tab PO Q4H PRN PRN Reason: Pain Last Admin: 10/26/16 02:42 Dose: 0.5 tab Bisacodyl (Dulcolax) 10 mg RECTAL DAILY PRN PRN Reason: Constipation Last Admin: 10/25/16 15:19 Dose: 10 mg Admin: 10/22/16 14:38 Dose: 10 mg Carbidopa/Levodopa (Sinemet 25-100 Mg) 1 tab PO BEDTIME [facility] Last Admin: 10/25/16 20:46 Dose: 1 tab Admin: 10/24/16 20:55 Dose: 1 tab Admin: 10/23/16 21:11 Dose: 1 tab Admin: 10/22/16 20:53 Dose: 1 tab Docusate Sodium (Colace) 100 mg PO BID [facility] Last Admin: 10/26/16 08:34 Dose: 100 mg Admin: 10/25/16 20:46 Dose: 100 mg Admin: 10/25/16 08:51 Dose: 100 mg Ketorolac Tromethamine (Toradol) 30 mg IVPUSH Q6H PRN PRN Reason: Pain (moderate 4-6) Stop: 10/27/16 11:11 Last Admin: 10/24/16 00:39 Dose: 30 mg Admin: 10/23/16 04:05 Dose: 30 mg Lorazepam (Ativan) 0.5 - 1 mg IVPUSH Q4H PRN PRN Reason: Nausea/Vomiting Losartan Potassium (Cozaar) 100 mg PO DAILY [facility] Last Admin: 10/26/16 08:34 Dose: 100 mg Admin: 10/25/16 08:51 Dose: 100 mg Admin: 10/24/16 08:20 Dose: 100 mg Admin: 10/23/16 08:32 Dose: 100 mg Magnesium Hydroxide (Milk Of Magnesia) 30 ml PO BID PRN PRN Reason: Constipation Methocarbamol (Robaxin) 750 mg PO QID PRN PRN Reason: MUSCLE SPASM Ondansetron HCl (Zofran Odt) 4 mg PO Q6H PRN PRN Reason: Nausea able to take PO Ondansetron HCl (Zofran) 4 mg IV Q6H PRN PRN Reason: Nausea/Vomiting Polyethylene Glycol (Miralax) 17 gm PO BID PRN PRN Reason: Constipation Pravastatin Sodium (Pravachol) 40 mg PO BEDTIME [facility] Last Admin: 10/25/16 20:46 Dose: 40 mg Admin: 10/24/16 20:54 Dose: 40 mg Admin: 10/23/16 21:11 Dose: 40 mg Admin: 10/22/16 20:52 Dose: 40 mg Tamsulosin HCl (Flomax) 0.4 mg PO DAILY@2100 [facility] Last Admin: 10/25/16 20:46 Dose: 0.4 mg Admin: 10/24/16 20:55 Dose: 0.4 mg Admin: 10/23/16 21:11 Dose: 0.4 mg Admin: 10/22/16 20:53 Dose: 0.4 mg Zolpidem Tartrate (Ambien) 10 mg PO BEDTIME [facility] Last Admin: 10/25/16 21:31 Dose: 10 mg Admin: 10/24/16 20:59 Dose: 10 mg Admin: 10/23/16 21:11 Dose: 10 mg Admin: 10/22/16 20:52 Dose: 10 mg - Assessment Assessment (Free Text/Narrative):: No air leak. - Plan Plan (Free Text/Narrative):: No change. Plan tomorrow to put on water seal.
--- NOTE | 2016-10-26 11:24 | PCM.SURGPN ---
- General Info Date of Service: 10/26/16 Date of Surgery/Procedure: 10/24/16 POD#: 2 Functional Status: Reports: pain controlled, tolerating diet, ambulating (With chest tube in area of bed. ), urinating, incentive spirometry - Review of Systems General: Reports: No Symptoms HEENT: Reports: no symptoms Pulmonary: Reports: no symptoms Cardiovascular: Reports: No Symptoms Gastrointestinal: Reports: No symptoms Genitourinary: Reports: no symptoms Musculoskeletal: Reports: no symptoms Skin: Reports: no symptoms Neurological: Reports: No Symptoms Psychiatric: Reports: no symptoms - Patient Data Vitals - most recent: Last Vital Signs Temp 99.2 F 10/26/16 08:29 Pulse 75 10/26/16 08:29 Resp 18 10/26/16 08:29 BP 103/72 10/26/16 08:34 Pulse Ox 94 L 10/26/16 08:29 Weight - most recent: 224 lb 13.944 oz I&O - last 24 hours: Intake & Output 10/25/16 10/26/16 10/26/16 22:59 06:59 14:59 Intake Total 580 200 320 Output Total 450 910 Balance 130 -710 320 Med Orders - Current: Current Medications Acetaminophen (Tylenol) 650 mg PO Q4H PRN PRN Reason: Pain (Mild 1-3)/fever Last Admin: 10/25/16 15:41 Dose: 650 mg Hydrocodone Bitart/Acetaminophen ([place] 325-10 Mg) 0.5 tab PO Q4H PRN PRN Reason: Pain Last Admin: 10/26/16 02:42 Dose: 0.5 tab Bisacodyl (Dulcolax) 10 mg RECTAL DAILY PRN PRN Reason: Constipation Last Admin: 10/25/16 15:19 Dose: 10 mg Carbidopa/Levodopa (Sinemet 25-100 Mg) 1 tab PO BEDTIME [facility] Last Admin: 10/25/16 20:46 Dose: 1 tab Docusate Sodium (Colace) 100 mg PO BID [facility] Last Admin: 10/26/16 08:34 Dose: 100 mg Ketorolac Tromethamine (Toradol) 30 mg IVPUSH Q6H PRN PRN Reason: Pain (moderate 4-6) Stop: 10/27/16 11:11 Last Admin: 10/24/16 00:39 Dose: 30 mg Lorazepam (Ativan) 0.5 - 1 mg IVPUSH Q4H PRN PRN Reason: Nausea/Vomiting Losartan Potassium (Cozaar) 100 mg PO DAILY [facility] Last Admin: 10/26/16 08:34 Dose: 100 mg Magnesium Hydroxide (Milk Of Magnesia) 30 ml PO BID PRN PRN Reason: Constipation Methocarbamol (Robaxin) 750 mg PO QID PRN PRN Reason: MUSCLE SPASM Ondansetron HCl (Zofran Odt) 4 mg PO Q6H PRN PRN Reason: Nausea able to take PO Ondansetron HCl (Zofran) 4 mg IV Q6H PRN PRN Reason: Nausea/Vomiting Polyethylene Glycol (Miralax) 17 gm PO BID PRN PRN Reason: Constipation Pravastatin Sodium (Pravachol) 40 mg PO BEDTIME [facility] Last Admin: 10/25/16 20:46 Dose: 40 mg Tamsulosin HCl (Flomax) 0.4 mg PO DAILY@2100 [facility] Last Admin: 10/25/16 20:46 Dose: 0.4 mg Zolpidem Tartrate (Ambien) 10 mg PO BEDTIME [facility] Last Admin: 10/25/16 21:31 Dose: 10 mg Discontinued Medications Hydrocodone Bitart/Acetaminophen ([place] 325-5 Mg) 1 tab PO ONETIME ONE Stop: 10/22/16 09:30 Last Admin: 10/22/16 09:44 Dose: Not Given Hydrocodone Bitart/Acetaminophen ([place] 325-10 Mg) 1 tab PO Q4H PRN PRN Reason: Pain Last Admin: 10/25/16 07:37 Dose: 1 tab Bacitracin (Bacitracin Oint 1 Gm) 1 dose TOP ONETIME ONE Stop: 10/24/16 14:05 Last Admin: 10/24/16 14:20 Dose: 4 dose Sodium Chloride (Normal Saline) 1,000 mls @ 500 mls/hr IV ASDIRECTED [facility] Last Admin: 10/22/16 08:08 Dose: 500 mls/hr Dextrose/Sodium Chloride (Dextrose 5%-Normal Saline) 1,000 mls @ 100 mls/hr IV ASDIRECTED [facility] Last Admin: 10/22/16 19:54 Dose: 100 mls/hr Potassium Chloride 20 meq/Lidocaine HCl 2 ml/ Sodium Chloride 112 mls @ 50 mls/ hr IV Q2H [facility] Stop: 10/22/16 18:59 Last Admin: 10/22/16 17:53 Dose: 50 mls/hr Ketorolac Tromethamine (Toradol) 30 mg IVPUSH ONETIME ONE Stop: 10/22/16 09:16 Last Admin: 10/22/16 09:20 Dose: 30 mg Lidocaine HCl (Xylocaine-Mpf 1%) 10 ml INJECT ONETIME ONE Stop: 10/24/16 12:21 Last Admin: 10/24/16 14:20 Dose: 10 ml Lidocaine HCl (Xylocaine-Mpf 1%) Confirm Administered Dose 10 ml .ROUTE .STK- MED ONE Stop: 10/24/16 14:29 Last Admin: 10/24/16 14:20 Dose: 10 ml Morphine Sulfate (Morphine) 4 - 8 mg IV Q2H PRN PRN Reason: SEVERE PAIN (7-10) Ondansetron HCl (Zofran) 4 mg IVPUSH ONETIME ONE Stop: 10/22/16 07:46 Last Admin: 10/22/16 08:09 Dose: 4 mg Pantoprazole Sodium (Protonix Iv) 40 mg IV ONETIME ONE Stop: 10/22/16 12:01 Last Admin: 10/22/16 11:51 Dose: 40 mg Potassium Chloride (Klor-Con M20) 40 meq PO BID [facility] Last Admin: 10/25/16 08:52 Dose: 40 meq Tamsulosin HCl (Flomax) 0.4 mg PO DAILY [facility] - Exam Wound/Incisions: no drainage General: alert, oriented, cooperative, no acute distress Lungs: Clear to auscultation, Normal respiratory effort Cardiovascular: Regular Rate, Regular Rhythm Abdomen: bowel sounds present, soft, no tenderness, no distension Extremities: no edema Skin: warm, dry, intact Neurological: no new focal deficit, normal speech Psy/Mental Status: alert, normal affect, normal mood - Problem List & Annotations (1) Pneumothorax, right SNOMED Code(s): 820398640 Code(s): J93.9 - PNEUMOTHORAX, UNSPECIFIED Status: Acute Current Visit: Yes - Problem List Review Problem List Initiated/Reviewed/Updated: Yes - My Orders Last 24 Hours: Active Orders 24 hr Category Date Time Status Chest Tube Management [RC] ASDIRECTED Care 10/26/16 11:17 Ordered Chest 1V Frontal [CR] DAILY Exams 10/27/16 05:00 Ordered Chest 1V Frontal [CR] DAILY Exams 10/28/16 05:00 Ordered Chest 1V Frontal [CR] DAILY Exams 10/29/16 05:00 Ordered Chest 1V Frontal [CR] DAILY Exams 10/30/16 05:00 Ordered Acetaminophen/HYDROcodone [[place] 325-10 MG] Med 10/25/16 10:45 Active 0.5 tab PO Q4H PRN Magnesium Hydroxide [Milk of Magnesia] Med 10/25/16 13:58 Active 30 ml PO BID PRN Polyethylene Glycol 3350 [MiraLAX] Med 10/25/16 13:58 Active 17 gm PO BID PRN Medication Orders Acetaminophen (Tylenol) 650 mg PO Q4H PRN PRN Reason: Pain (Mild 1-3)/fever Last Admin: 10/25/16 15:41 Dose: 650 mg Admin: 10/25/16 11:31 Dose: 650 mg Hydrocodone Bitart/Acetaminophen ([place] 325-10 Mg) 0.5 tab PO Q4H PRN PRN Reason: Pain Last Admin: 10/26/16 02:42 Dose: 0.5 tab Bisacodyl (Dulcolax) 10 mg RECTAL DAILY PRN PRN Reason: Constipation Last Admin: 10/25/16 15:19 Dose: 10 mg Admin: 10/22/16 14:38 Dose: 10 mg Carbidopa/Levodopa (Sinemet 25-100 Mg) 1 tab PO BEDTIME [facility] Last Admin: 10/25/16 20:46 Dose: 1 tab Admin: 10/24/16 20:55 Dose: 1 tab Admin: 10/23/16 21:11 Dose: 1 tab Admin: 10/22/16 20:53 Dose: 1 tab Docusate Sodium (Colace) 100 mg PO BID [facility] Last Admin: 10/26/16 08:34 Dose: 100 mg Admin: 10/25/16 20:46 Dose: 100 mg Admin: 10/25/16 08:51 Dose: 100 mg Ketorolac Tromethamine (Toradol) 30 mg IVPUSH Q6H PRN PRN Reason: Pain (moderate 4-6) Stop: 10/27/16 11:11 Last Admin: 10/24/16 00:39 Dose: 30 mg Admin: 10/23/16 04:05 Dose: 30 mg Lorazepam (Ativan) 0.5 - 1 mg IVPUSH Q4H PRN PRN Reason: Nausea/Vomiting Losartan Potassium (Cozaar) 100 mg PO DAILY [facility] Last Admin: 10/26/16 08:34 Dose: 100 mg Admin: 10/25/16 08:51 Dose: 100 mg Admin: 10/24/16 08:20 Dose: 100 mg Admin: 10/23/16 08:32 Dose: 100 mg Magnesium Hydroxide (Milk Of Magnesia) 30 ml PO BID PRN PRN Reason: Constipation Methocarbamol (Robaxin) 750 mg PO QID PRN PRN Reason: MUSCLE SPASM Ondansetron HCl (Zofran Odt) 4 mg PO Q6H PRN PRN Reason: Nausea able to take PO Ondansetron HCl (Zofran) 4 mg IV Q6H PRN PRN Reason: Nausea/Vomiting Polyethylene Glycol (Miralax) 17 gm PO BID PRN PRN Reason: Constipation Pravastatin Sodium (Pravachol) 40 mg PO BEDTIME [facility] Last Admin: 10/25/16 20:46 Dose: 40 mg Admin: 10/24/16 20:54 Dose: 40 mg Admin: 10/23/16 21:11 Dose: 40 mg Admin: 10/22/16 20:52 Dose: 40 mg Tamsulosin HCl (Flomax) 0.4 mg PO DAILY@2100 [facility] Last Admin: 10/25/16 20:46 Dose: 0.4 mg Admin: 10/24/16 20:55 Dose: 0.4 mg Admin: 10/23/16 21:11 Dose: 0.4 mg Admin: 10/22/16 20:53 Dose: 0.4 mg Zolpidem Tartrate (Ambien) 10 mg PO BEDTIME [facility] Last Admin: 10/25/16 21:31 Dose: 10 mg Admin: 10/24/16 20:59 Dose: 10 mg Admin: 10/23/16 21:11 Dose: 10 mg Admin: 10/22/16 20:52 Dose: 10 mg - Assessment Assessment (Free Text/Narrative):: CXR with no pneumothorax. No air leak. - Plan Plan (Free Text/Narrative):: Chest tube to water seal. Plan to remove it tomorrow.
--- NOTE | 2016-10-26 11:46 | PCM.PN ---
- General Info Date of Service: 10/26/16 Functional Status: Reports: pain controlled, tolerating diet, ambulating - Review of Systems General: Denies: Fever Pulmonary: Denies: shortness of breath Cardiovascular: Denies: Chest Pain Systems Review Comment:: No acute events overnight. Minimal chest tube drainage. Pain well-controlled with one half tablet of the hydrocodone. He does use oxygen at night but during the day has not had any hypoxia. He is interested in a trial without the [place] catheter. - Patient Data Vitals - most recent: Last Vital Signs Temp 37.3 C 10/26/16 08:29 Pulse 75 10/26/16 08:29 Resp 18 10/26/16 08:29 BP 103/72 10/26/16 08:34 Pulse Ox 94 L 10/26/16 08:29 Weight - most recent: 102 kg I&O - last 24 hours: Intake & Output 10/25/16 10/26/16 10/26/16 22:59 06:59 14:59 Intake Total 580 200 320 Output Total 450 910 Balance 130 -710 320 Med Orders - Current: Current Medications Acetaminophen (Tylenol) 650 mg PO Q4H PRN PRN Reason: Pain (Mild 1-3)/fever Last Admin: 10/25/16 15:41 Dose: 650 mg Hydrocodone Bitart/Acetaminophen ([place] 325-10 Mg) 0.5 tab PO Q4H PRN PRN Reason: Pain Last Admin: 10/26/16 02:42 Dose: 0.5 tab Bisacodyl (Dulcolax) 10 mg RECTAL DAILY PRN PRN Reason: Constipation Last Admin: 10/25/16 15:19 Dose: 10 mg Carbidopa/Levodopa (Sinemet 25-100 Mg) 1 tab PO BEDTIME [facility] Last Admin: 10/25/16 20:46 Dose: 1 tab Docusate Sodium (Colace) 100 mg PO BID [facility] Last Admin: 10/26/16 08:34 Dose: 100 mg Losartan Potassium (Cozaar) 100 mg PO DAILY [facility] Last Admin: 10/26/16 08:34 Dose: 100 mg Magnesium Hydroxide (Milk Of Magnesia) 30 ml PO BID PRN PRN Reason: Constipation Methocarbamol (Robaxin) 750 mg PO QID PRN PRN Reason: MUSCLE SPASM Ondansetron HCl (Zofran Odt) 4 mg PO Q6H PRN PRN Reason: Nausea able to take PO Ondansetron HCl (Zofran) 4 mg IV Q6H PRN PRN Reason: Nausea/Vomiting Polyethylene Glycol (Miralax) 17 gm PO BID PRN PRN Reason: Constipation Pravastatin Sodium (Pravachol) 40 mg PO BEDTIME [facility] Last Admin: 10/25/16 20:46 Dose: 40 mg Tamsulosin HCl (Flomax) 0.4 mg PO DAILY@2100 [facility] Last Admin: 10/25/16 20:46 Dose: 0.4 mg Zolpidem Tartrate (Ambien) 10 mg PO BEDTIME [facility] Last Admin: 10/25/16 21:31 Dose: 10 mg Discontinued Medications Hydrocodone Bitart/Acetaminophen ([place] 325-5 Mg) 1 tab PO ONETIME ONE Stop: 10/22/16 09:30 Last Admin: 10/22/16 09:44 Dose: Not Given Hydrocodone Bitart/Acetaminophen ([place] 325-10 Mg) 1 tab PO Q4H PRN PRN Reason: Pain Last Admin: 10/25/16 07:37 Dose: 1 tab Bacitracin (Bacitracin Oint 1 Gm) 1 dose TOP ONETIME ONE Stop: 10/24/16 14:05 Last Admin: 10/24/16 14:20 Dose: 4 dose Sodium Chloride (Normal Saline) 1,000 mls @ 500 mls/hr IV ASDIRECTED [facility] Last Admin: 10/22/16 08:08 Dose: 500 mls/hr Dextrose/Sodium Chloride (Dextrose 5%-Normal Saline) 1,000 mls @ 100 mls/hr IV ASDIRECTED [facility] Last Admin: 10/22/16 19:54 Dose: 100 mls/hr Potassium Chloride 20 meq/Lidocaine HCl 2 ml/ Sodium Chloride 112 mls @ 50 mls/ hr IV Q2H [facility] Stop: 10/22/16 18:59 Last Admin: 10/22/16 17:53 Dose: 50 mls/hr Ketorolac Tromethamine (Toradol) 30 mg IVPUSH ONETIME ONE Stop: 10/22/16 09:16 Last Admin: 10/22/16 09:20 Dose: 30 mg Ketorolac Tromethamine (Toradol) 30 mg IVPUSH Q6H PRN PRN Reason: Pain (moderate 4-6) Stop: 10/27/16 11:11 Last Admin: 10/24/16 00:39 Dose: 30 mg Lidocaine HCl (Xylocaine-Mpf 1%) 10 ml INJECT ONETIME ONE Stop: 10/24/16 12:21 Last Admin: 10/24/16 14:20 Dose: 10 ml Lidocaine HCl (Xylocaine-Mpf 1%) Confirm Administered Dose 10 ml .ROUTE .STK- MED ONE Stop: 10/24/16 14:29 Last Admin: 10/24/16 14:20 Dose: 10 ml Lorazepam (Ativan) 0.5 - 1 mg IVPUSH Q4H PRN PRN Reason: Nausea/Vomiting Morphine Sulfate (Morphine) 4 - 8 mg IV Q2H PRN PRN Reason: SEVERE PAIN (7-10) Ondansetron HCl (Zofran) 4 mg IVPUSH ONETIME ONE Stop: 10/22/16 07:46 Last Admin: 10/22/16 08:09 Dose: 4 mg Pantoprazole Sodium (Protonix Iv) 40 mg IV ONETIME ONE Stop: 10/22/16 12:01 Last Admin: 10/22/16 11:51 Dose: 40 mg Potassium Chloride (Klor-Con M20) 40 meq PO BID [facility] Last Admin: 10/25/16 08:52 Dose: 40 meq Tamsulosin HCl (Flomax) 0.4 mg PO DAILY [facility] - Exam Quality Assessment: No: supplemental oxygen General: alert, oriented, cooperative, no acute distress Neck: supple Lungs: Normal respiratory effort Abdomen: no distension Extremities: no edema Skin: warm, dry Psy/Mental Status: alert, normal affect - Problem List & Annotations (1) Ileus SNOMED Code(s): 174536923 Code(s): K56.7 - ILEUS, UNSPECIFIED Status: Acute Current Visit: Yes (2) Acute urinary retention SNOMED Code(s): 473949935 Code(s): R33.8 - OTHER RETENTION OF URINE Status: Acute Current Visit: Yes (3) Fracture, ribs SNOMED Code(s): 51863611 Code(s): S22.39XA - FRACTURE OF ONE RIB, UNSP SIDE, INIT FOR CLOS FX Status : Acute Current Visit: Yes Qualifiers: Encounter type: subsequent encounter Rib fracture type: multiple ribs Fracture type: closed Laterality: right Fracture healing: with routine healing Qualified Code(s): S22.41XD - Multiple fractures of ribs, right side, subsequent encounter for fracture with routine healing (4) Pneumothorax, right SNOMED Code(s): 812428871 Code(s): J93.9 - PNEUMOTHORAX, UNSPECIFIED Status: Acute Current Visit: Yes - Problem List Review Problem List Initiated/Reviewed/Updated: Yes - My Orders Last 24 Hours: My Active Orders 10/25/16 13:58 Magnesium Hydroxide [Milk of Magnesia] 30 ml PO BID PRN Polyethylene Glycol 3350 [MiraLAX] 17 gm PO BID PRN 10/26/16 11:40 Remove Brown Catheter [Urinary Catheter Removal] [RC] Per Unit Routine 10/26/16 11:44 Communication Order [RC] ROUTINE - Plan Plan:: Assessment and plan - Posttraumatic ileus - patient had a fall 2 days before admission, suspect the ileus is caused by this. Bowel function seems to be normalizing -Bowel stimulation -Mechanical soft diet -Saline lock IV fluids Traumatic right pneumothorax - status post chest tube placement on 10/24. X-ray today stable. Minimal chest tube output. -Chest tube care as per Dr Olivarez, may be able to remove tomorrow -Chest x-ray the morning Adrenal hematoma - no impressive abdominal pain at this time. Seems to be doing well with current pain medications. Hemoglobin stable. -Hemoglobin in the morning Right rib fractures - mild pain, no longer provides any major limitations. Pain has been well-controlled. -Pain control with acetaminophen, nonsteroidals and 1/2 tablet of hydrocodone Acute urinary retention - likely secondary to BPH. Brown catheter was placed last Saturday in outpatient followup setting. Planning to remove today for a trial of voiding. -Discontinue Brown catheter today -Outpatient followup with urology Maintenance issues - - DVT prophylaxis - mechanical - GI prophylaxis - PPI - Nutrition - mechanical soft - Brown catheter - removing today Disposition - anticipate discharge to home after the hospital stay, possibly tomorrow Tate Narvaez M.D.
[2016-10-26] MEDS: Carbidopa/Levodopa 25-100 MG Tab PO SCH (20:45)
[2016-10-26] MEDS: Tamsulosin 0.4 MG Cap.ER PO SCH (20:45)
[2016-10-26] MEDS: Pravastatin 20 MG Tab PO SCH (20:45)
[2016-10-26] MEDS ORDERED: Lidocaine 2% Jelly 10 ML Urojet MUCMEM ONE (21:07)
--- NOTE | 2016-10-26 21:08 | PCM.SN ---
- Free Text/Narrative Note: time; 2100 concerns of bladder pain and elevated blood pressure o; bladder scan 441 ml. blood pressure 164/100 a; urinary retention, elevated blood pressure p; re-insert Brown cath, keep in over night, then re-assess in am given Flomax as directed, no changes in blood pressure medications continue present plan of care
[2016-10-26] MEDS: Zolpidem 5 MG Tab PO SCH (21:35)
[2016-10-27] MEDS: Acetaminophen/HYDROcodone 325-10 MG Tab PO PRN ×2 (02:25→09:58)
[2016-10-27] MEDS: Docusate Sodium 100 MG Cap PO SCH (08:23)
[2016-10-27] MEDS: Losartan 50 MG Tab PO SCH (08:23)
[2016-10-27] MEDS ORDERED: Bacitracin Oint 1 GM U/D Packet TOP ONE (09:30)
--- NOTE | 2016-10-27 10:12 | PCM.SURGPN ---
- General Info Date of Service: 10/27/16 Date of Surgery/Procedure: 10/24/16 POD#: 3 Post-Op Diagnosis: Right pneumothorax Functional Status: Reports: pain controlled, tolerating diet, ambulating, urinating (Needs Brown), incentive spirometry - Review of Systems General: Reports: No Symptoms HEENT: Reports: no symptoms Pulmonary: Reports: no symptoms Cardiovascular: Reports: No Symptoms Gastrointestinal: Reports: No symptoms Genitourinary: Reports: no symptoms Musculoskeletal: Reports: no symptoms Skin: Reports: no symptoms Neurological: Reports: No Symptoms Psychiatric: Reports: no symptoms - Patient Data Vitals - most recent: Last Vital Signs Temp 99.5 F 10/27/16 07:00 Pulse 89 10/27/16 07:00 Resp 18 10/27/16 07:00 BP 141/76 H 10/27/16 08:23 Pulse Ox 93 L 10/27/16 07:00 Weight - most recent: 224 lb 13.944 oz I&O - last 24 hours: Intake & Output 10/26/16 10/27/16 10/27/16 22:59 06:59 14:59 Intake Total 840 Output Total 966 Balance -126 Med Orders - Current: Current Medications Acetaminophen (Tylenol) 650 mg PO Q4H PRN PRN Reason: Pain (Mild 1-3)/fever Last Admin: 10/25/16 15:41 Dose: 650 mg Hydrocodone Bitart/Acetaminophen ([place] 325-10 Mg) 0.5 tab PO Q4H PRN PRN Reason: Pain Last Admin: 10/27/16 09:58 Dose: 0.5 tab Bisacodyl (Dulcolax) 10 mg RECTAL DAILY PRN PRN Reason: Constipation Last Admin: 10/25/16 15:19 Dose: 10 mg Carbidopa/Levodopa (Sinemet 25-100 Mg) 1 tab PO BEDTIME MATIAS Last Admin: 10/26/16 20:45 Dose: 1 tab Docusate Sodium (Colace) 100 mg PO BID MATIAS Last Admin: 10/27/16 08:23 Dose: 100 mg Losartan Potassium (Cozaar) 100 mg PO DAILY [facility]IAS Last Admin: 10/27/16 08:23 Dose: 100 mg Magnesium Hydroxide (Milk Of Magnesia) 30 ml PO BID PRN PRN Reason: Constipation Methocarbamol (Robaxin) 750 mg PO QID PRN PRN Reason: MUSCLE SPASM Ondansetron HCl (Zofran Odt) 4 mg PO Q6H PRN PRN Reason: Nausea able to take PO Ondansetron HCl (Zofran) 4 mg IV Q6H PRN PRN Reason: Nausea/Vomiting Polyethylene Glycol (Miralax) 17 gm PO BID PRN PRN Reason: Constipation Pravastatin Sodium (Pravachol) 40 mg PO BEDTIME [facility] Last Admin: 10/26/16 20:45 Dose: 40 mg Tamsulosin HCl (Flomax) 0.4 mg PO DAILY@2100 [facility] Last Admin: 10/26/16 20:45 Dose: 0.4 mg Zolpidem Tartrate (Ambien) 10 mg PO BEDTIME [facility] Last Admin: 10/26/16 21:35 Dose: 10 mg Discontinued Medications Hydrocodone Bitart/Acetaminophen ([place] 325-5 Mg) 1 tab PO ONETIME ONE Stop: 10/22/16 09:30 Last Admin: 10/22/16 09:44 Dose: Not Given Hydrocodone Bitart/Acetaminophen ([place] 325-10 Mg) 1 tab PO Q4H PRN PRN Reason: Pain Last Admin: 10/25/16 07:37 Dose: 1 tab Bacitracin (Bacitracin Oint 1 Gm) 1 dose TOP ONETIME ONE Stop: 10/24/16 14:05 Last Admin: 10/24/16 14:20 Dose: 4 dose Bacitracin (Bacitracin Oint 1 Gm) 1 dose TOP ONETIME ONE Stop: 10/27/16 09:31 Sodium Chloride (Normal Saline) 1,000 mls @ 500 mls/hr IV ASDIRECTED [facility] Last Admin: 10/22/16 08:08 Dose: 500 mls/hr Dextrose/Sodium Chloride (Dextrose 5%-Normal Saline) 1,000 mls @ 100 mls/hr IV ASDIRECTED [facility] Last Admin: 10/22/16 19:54 Dose: 100 mls/hr Potassium Chloride 20 meq/Lidocaine HCl 2 ml/ Sodium Chloride 112 mls @ 50 mls/ hr IV Q2H [facility] Stop: 10/22/16 18:59 Last Admin: 10/22/16 17:53 Dose: 50 mls/hr Ketorolac Tromethamine (Toradol) 30 mg IVPUSH ONETIME ONE Stop: 10/22/16 09:16 Last Admin: 10/22/16 09:20 Dose: 30 mg Ketorolac Tromethamine (Toradol) 30 mg IVPUSH Q6H PRN PRN Reason: Pain (moderate 4-6) Stop: 10/27/16 11:11 Last Admin: 10/24/16 00:39 Dose: 30 mg Lidocaine HCl (Xylocaine-Mpf 1%) 10 ml INJECT ONETIME ONE Stop: 10/24/16 12:21 Last Admin: 10/24/16 14:20 Dose: 10 ml Lidocaine HCl (Xylocaine-Mpf 1%) Confirm Administered Dose 10 ml .ROUTE .STK- MED ONE Stop: 10/24/16 14:29 Last Admin: 10/24/16 14:20 Dose: 10 ml Lidocaine HCl (Xylocaine 2% Jelly) 10 ml MUCMEM ONETIME ONE Stop: 10/26/16 21:08 Last Admin: 10/26/16 21:34 Dose: 10 ml Lorazepam (Ativan) 0.5 - 1 mg IVPUSH Q4H PRN PRN Reason: Nausea/Vomiting Morphine Sulfate (Morphine) 4 - 8 mg IV Q2H PRN PRN Reason: SEVERE PAIN (7-10) Ondansetron HCl (Zofran) 4 mg IVPUSH ONETIME ONE Stop: 10/22/16 07:46 Last Admin: 10/22/16 08:09 Dose: 4 mg Pantoprazole Sodium (Protonix Iv) 40 mg IV ONETIME ONE Stop: 10/22/16 12:01 Last Admin: 10/22/16 11:51 Dose: 40 mg Potassium Chloride (Klor-Con M20) 40 meq PO BID MATIAS Last Admin: 10/25/16 08:52 Dose: 40 meq Tamsulosin HCl (Flomax) 0.4 mg PO DAILY MATIAS - Exam Wound/Incisions: healing well, dressing dry and intact, no drainage Lungs: Clear to auscultation, Normal respiratory effort - Problem List & Annotations (1) Pneumothorax, right SNOMED Code(s): 220967039 Code(s): J93.9 - PNEUMOTHORAX, UNSPECIFIED Status: Acute Current Visit: Yes - Problem List Review Problem List Initiated/Reviewed/Updated: Yes - My Orders Last 24 Hours: Active Orders 24 hr Category Date Time Status Urinary Catheter Assessment [RC] ASDIRECTED Care 10/26/16 21:05 Active Urinary Catheter Insertion [Insert Urinary Catheter] [ Care 10/26/16 21:15 Ordered OM.PC] Q24H Chest 1V Frontal [CR] DAILY Exams 10/27/16 05:00 Taken Chest 1V Frontal [CR] DAILY Exams 10/28/16 05:00 Ordered Chest 1V Frontal [CR] DAILY Exams 10/29/16 05:00 Ordered Chest 1V Frontal [CR] DAILY Exams 10/30/16 05:00 Ordered Chest 1V Frontal [CR] Routine Exams 10/27/16 09:49 Ordered Medication Orders Acetaminophen (Tylenol) 650 mg PO Q4H PRN PRN Reason: Pain (Mild 1-3)/fever Last Admin: 10/25/16 15:41 Dose: 650 mg Admin: 10/25/16 11:31 Dose: 650 mg Hydrocodone Bitart/Acetaminophen ([place]eyo 325-10 Mg) 0.5 tab PO Q4H PRN PRN Reason: Pain Last Admin: 10/27/16 09:58 Dose: 0.5 tab Admin: 10/27/16 02:25 Dose: 0.5 tab Admin: 10/26/16 02:42 Dose: 0.5 tab Bisacodyl (Dulcolax) 10 mg RECTAL DAILY PRN PRN Reason: Constipation Last Admin: 10/25/16 15:19 Dose: 10 mg Admin: 10/22/16 14:38 Dose: 10 mg Carbidopa/Levodopa (Sinemet 25-100 Mg) 1 tab PO BEDTIME [facility] Last Admin: 10/26/16 20:45 Dose: 1 tab Admin: 10/25/16 20:46 Dose: 1 tab Admin: 10/24/16 20:55 Dose: 1 tab Admin: 10/23/16 21:11 Dose: 1 tab Admin: 10/22/16 20:53 Dose: 1 tab Docusate Sodium (Colace) 100 mg PO BID [facility] Last Admin: 10/27/16 08:23 Dose: 100 mg Admin: 10/26/16 20:45 Dose: 100 mg Admin: 10/26/16 08:34 Dose: 100 mg Admin: 10/25/16 20:46 Dose: 100 mg Admin: 10/25/16 08:51 Dose: 100 mg Losartan Potassium (Cozaar) 100 mg PO DAILY [facility] Last Admin: 10/27/16 08:23 Dose: 100 mg Admin: 10/26/16 08:34 Dose: 100 mg Admin: 10/25/16 08:51 Dose: 100 mg Admin: 10/24/16 08:20 Dose: 100 mg Admin: 10/23/16 08:32 Dose: 100 mg Magnesium Hydroxide (Milk Of Magnesia) 30 ml PO BID PRN PRN Reason: Constipation Methocarbamol (Robaxin) 750 mg PO QID PRN PRN Reason: MUSCLE SPASM Ondansetron HCl (Zofran Odt) 4 mg PO Q6H PRN PRN Reason: Nausea able to take PO Ondansetron HCl (Zofran) 4 mg IV Q6H PRN PRN Reason: Nausea/Vomiting Polyethylene Glycol (Miralax) 17 gm PO BID PRN PRN Reason: Constipation Pravastatin Sodium (Pravachol) 40 mg PO BEDTIME [facility] Last Admin: 10/26/16 20:45 Dose: 40 mg Admin: 10/25/16 20:46 Dose: 40 mg Admin: 10/24/16 20:54 Dose: 40 mg Admin: 10/23/16 21:11 Dose: 40 mg Admin: 10/22/16 20:52 Dose: 40 mg Tamsulosin HCl (Flomax) 0.4 mg PO DAILY@2100 [facility] Last Admin: 10/26/16 20:45 Dose: 0.4 mg Admin: 10/25/16 20:46 Dose: 0.4 mg Admin: 10/24/16 20:55 Dose: 0.4 mg Admin: 10/23/16 21:11 Dose: 0.4 mg Admin: 10/22/16 20:53 Dose: 0.4 mg Zolpidem Tartrate (Ambien) 10 mg PO BEDTIME [facility] Last Admin: 10/26/16 21:35 Dose: 10 mg Admin: 10/25/16 21:31 Dose: 10 mg Admin: 10/24/16 20:59 Dose: 10 mg Admin: 10/23/16 21:11 Dose: 10 mg Admin: 10/22/16 20:52 Dose: 10 mg - Assessment Assessment (Free Text/Narrative):: Doing well. CXR shows no pneumothorax. There is no air leak. - Plan Plan (Free Text/Narrative):: Right chest tube removed. Follow up CXR shows no pneumothorax. OK with me if he is discharged. No flying in aircraft for three months. No diving for three months. See him in clinic a week from Saturday for suture removal.
[2016-10-27 10:53] VITALS: BP 154/93
--- NOTE | 2016-10-27 11:21 | PCM.DCSUM1 ---
Discharge Summary - Hospital Course Brief History: 81-year-old male with recent acute urinary retention that required a Brown catheter to be placed and fall with right rib fractures who presented with nausea vomiting and abdominal pain. He was admitted for management of a post traumatic ileus - Discharge Data Discharge Date: 10/27/16 Discharge Disposition: Home, W [facility] 06 Condition: Good - Discharge Diagnosis/Problem(s) (1) Ileus SNOMED Code(s): 806664731 ICD Code: K56.7 - ILEUS, UNSPECIFIED Status: Acute Current Visit: Yes (2) Acute urinary retention SNOMED Code(s): 954653551 ICD Code: R33.8 - OTHER RETENTION OF URINE Status: Acute Current Visit: Yes (3) Fracture, ribs SNOMED Code(s): 97155713 ICD Code: S22.39XA - FRACTURE OF ONE RIB, UNSP SIDE, INIT FOR CLOS FX Status: Acute Current Visit: Yes Qualifiers: Encounter type: subsequent encounter Rib fracture type: multiple ribs Fracture type: closed Laterality: right Fracture healing: with routine healing Qualified Code(s): S22.41XD - Multiple fractures of ribs, right side, subsequent encounter for fracture with routine healing (4) Pneumothorax, right SNOMED Code(s): 842411612 ICD Code: J93.9 - PNEUMOTHORAX, UNSPECIFIED Status: Acute Current Visit: Yes - Patient Summary/Data Operative Procedure(s) Performed: Right chest tube insertion by Dr. Olivarez Consults: Consultations 10/24/16 08:19 Consult to Physician [CONS] Routine Consulting Provider: Steve Olivarez Call Completed to Consulting Physician: Yes Reason for Consult: right ptx Person Notified: BDB Date Notified: 10/24/16 Hospital Course: Gordon presented with abdominal pain, nausea and retching 2 days after a fall resulting in trauma to his right chest. Workup in the emergency room revealed evidence for ileus. He was admitted to the hospital for further management. N.p.o. status was utilized along with IV fluids and pain control. Over the next 24 hours symptomatically he was feeling better and the followup abdominal x -ray showed improvement in his ileus. The abdominal x-ray did also show subcutaneous emphysema on the right side of the chest. This led to a chest x- ray which did reveal a very small right apical pneumothorax. A repeat chest x- ray second morning of admission revealed a much larger pneumothorax on the right side. It now occupies approximately 1/3 of the chest cavity. Dr. Olivarez was consulted and a right-sided chest tube was placed. He tolerated this procedure well. Over the next 2 days his ileus resolved and were able to advance to a regular diet. His chest tube output was minimal. He was transitioned to water seal and had no difficulties overnight. On the morning of discharge there is no residual pneumothorax even after the chest tube was removed. He is satting normally on room air. He has minimal pain and this has been well-controlled utilizing hydrocodone/acetaminophen. I believe he is safe for outpatient management at this time and will be discharged to home with his . He has sutures in place in the right side of his chest and these will need to be removed in 9 days. Also encountered during the hospital stay was difficulty with urinary retention. He had a Brown catheter placed the day before his fall and all of the difficulty began. We did remove the Brown catheter the day before discharge , one week after her was placed. Unfortunately he was unable to pass any urine in the Brown catheter was reinserted the night before discharge. At the time of discharge the plan is for him to leave the catheter in place for the next month until he has urology followup. He will continue on his tamsulosin during that time. - Patient Instructions Diet: Regular Diet as Tolerated Activity: As Tolerated, No Strenuous Activities (for the next week ) Driving: Do Not Drive (if taking pain pills) Showering/Bathing: May Shower (in two days ) Notify Provider of: Fever, Increased Pain, Swelling and Redness, Drainage, Nausea and/or Vomiting Other/Special Instructions: 1. You were in the hospital for management of an ileus (slow transit through the intestines) caused by the trauma from the fall that you sustained last weekend. Bowel function seems to be back to normal at this time. During the hospital stay your right lung collapsed because of a small hole in the lung. This was treated with a chest tube and seems to have resolved. You may control your pain utilizing acetaminophen for mild pain or one half of a tablet of hydrocodone for more intense pain. 2. You have an indwelling Brown catheter to help manage acute urinary retention. I suspect the urinary retention is caused by an enlarged prostate. You should leave the catheter in place until his followup with the urologist in one month. I would recommend that you continue to take the tamsulosin (Flomax) until the followup unless instructed otherwise by Dr. Carcamo. Maintaining good hydration by drinking plenty of water can help reduce the risk of colonization or infection with the catheter in place. 3. Please seek medical attention if you develop fever greater than 101, have worsening chest pain on the right side where the chest tube was that are suddenly developed shortness of breath and/or trouble breathing. - Discharge Plan Home Medications: Home Meds Esomeprazole Magnesium [Nexium] 20 mg PO BID 12/07/15 [History] Zolpidem Tartrate [Ambien] 10 mg PO BEDTIME 12/07/15 [History] Carbidopa/Levodopa [Carbidopa-Levodopa 25-100 Tab] 1 tab PO BEDTIME 03/03/16 [ History] Fluticasone Propionate [Flonase Allergy Relief] 2 sprays NS DAILY 10/19/16 [ History] Glucosamine HCl [Glucosamine] 1,500 mg PO DAILY 10/19/16 [History] Methocarbamol [Robaxin] 750 mg PO QID PRN 10/19/16 [History] Pravastatin Sodium [Pravastatin (Pravachol)] 40 mg PO BEDTIME 10/19/16 [History] Tamsulosin HCl [Flomax] 0.4 mg PO DAILY 10/19/16 [History] Acetaminophen/HYDROcodone [[place] 325-10 MG] 1 tab PO Q4H PRN #24 tablet [Rx] Losartan [Cozaar] 100 mg PO DAILY #30 tablet 10/21/16 [Rx] Ondansetron [Zofran ODT] 4 mg PO Q4H PRN #12 tab.dis 10/21/16 [Rx] Sennosides/Docusate Sodium [Senokot-S Tablet] 1 each PO BID #60 tablet 10/21/16 [Rx] Patient Handouts: Brown Catheter Care, Adult, Pneumothorax, Benign Prostatic Hyperplasia Referrals: Gordon Carcamo MD [Primary Care Provider] - (f/u next week - followup hospital stay with pneumothorax and ileus and discuss treatment for acute urinary retention) - Discharge Summary/Plan Comment DC Time >30 min.: No (25) - Patient Data Vitals - Most Recent: Last Vital Signs Temp 37.3 C 10/27/16 10:50 Pulse 74 10/27/16 10:50 Resp 18 10/27/16 10:50 BP 154/93 H 10/27/16 10:50 Pulse Ox 90 L 10/27/16 10:50 Weight - Most Recent: 102 kg I&O - Last 24 hours: Intake & Output 10/26/16 10/27/16 10/27/16 22:59 06:59 14:59 Intake Total 840 Output Total 966 Balance -126 Med Orders - Current: Current Medications Acetaminophen (Tylenol) 650 mg PO Q4H PRN PRN Reason: Pain (Mild 1-3)/fever Last Admin: 10/25/16 15:41 Dose: 650 mg Hydrocodone Bitart/Acetaminophen ([place] 325-10 Mg) 0.5 tab PO Q4H PRN PRN Reason: Pain Last Admin: 10/27/16 09:58 Dose: 0.5 tab Bisacodyl (Dulcolax) 10 mg RECTAL DAILY PRN PRN Reason: Constipation Last Admin: 10/25/16 15:19 Dose: 10 mg Carbidopa/Levodopa (Sinemet 25-100 Mg) 1 tab PO BEDTIME [facility] Last Admin: 10/26/16 20:45 Dose: 1 tab Docusate Sodium (Colace) 100 mg PO BID [facility] Last Admin: 10/27/16 08:23 Dose: 100 mg Losartan Potassium (Cozaar) 100 mg PO DAILY [facility] Last Admin: 10/27/16 08:23 Dose: 100 mg Magnesium Hydroxide (Milk Of Magnesia) 30 ml PO BID PRN PRN Reason: Constipation Methocarbamol (Robaxin) 750 mg PO QID PRN PRN Reason: MUSCLE SPASM Ondansetron HCl (Zofran Odt) 4 mg PO Q6H PRN PRN Reason: Nausea able to take PO Ondansetron HCl (Zofran) 4 mg IV Q6H PRN PRN Reason: Nausea/Vomiting Polyethylene Glycol (Miralax) 17 gm PO BID PRN PRN Reason: Constipation Pravastatin Sodium (Pravachol) 40 mg PO BEDTIME [facility] Last Admin: 10/26/16 20:45 Dose: 40 mg Tamsulosin HCl (Flomax) 0.4 mg PO DAILY@2100 [facility] Last Admin: 10/26/16 20:45 Dose: 0.4 mg Zolpidem Tartrate (Ambien) 10 mg PO BEDTIME [facility] Last Admin: 10/26/16 21:35 Dose: 10 mg Discontinued Medications Hydrocodone Bitart/Acetaminophen ([place] 325-5 Mg) 1 tab PO ONETIME ONE Stop: 10/22/16 09:30 Last Admin: 10/22/16 09:44 Dose: Not Given Hydrocodone Bitart/Acetaminophen ([place] 325-10 Mg) 1 tab PO Q4H PRN PRN Reason: Pain Last Admin: 10/25/16 07:37 Dose: 1 tab Bacitracin (Bacitracin Oint 1 Gm) 1 dose TOP ONETIME ONE Stop: 10/24/16 14:05 Last Admin: 10/24/16 14:20 Dose: 4 dose Bacitracin (Bacitracin Oint 1 Gm) 1 dose TOP ONETIME ONE Stop: 10/27/16 09:31 Sodium Chloride (Normal Saline) 1,000 mls @ 500 mls/hr IV ASDIRECTED [facility] Last Admin: 10/22/16 08:08 Dose: 500 mls/hr Dextrose/Sodium Chloride (Dextrose 5%-Normal Saline) 1,000 mls @ 100 mls/hr IV ASDIRECTED [facility] Last Admin: 10/22/16 19:54 Dose: 100 mls/hr Potassium Chloride 20 meq/Lidocaine HCl 2 ml/ Sodium Chloride 112 mls @ 50 mls/ hr IV Q2H [facility] Stop: 10/22/16 18:59 Last Admin: 10/22/16 17:53 Dose: 50 mls/hr Ketorolac Tromethamine (Toradol) 30 mg IVPUSH ONETIME ONE Stop: 10/22/16 09:16 Last Admin: 10/22/16 09:20 Dose: 30 mg Ketorolac Tromethamine (Toradol) 30 mg IVPUSH Q6H PRN PRN Reason: Pain (moderate 4-6) Stop: 10/27/16 11:11 Last Admin: 10/24/16 00:39 Dose: 30 mg Lidocaine HCl (Xylocaine-Mpf 1%) 10 ml INJECT ONETIME ONE Stop: 10/24/16 12:21 Last Admin: 10/24/16 14:20 Dose: 10 ml Lidocaine HCl (Xylocaine-Mpf 1%) Confirm Administered Dose 10 ml .ROUTE .STK- MED ONE Stop: 10/24/16 14:29 Last Admin: 10/24/16 14:20 Dose: 10 ml Lidocaine HCl (Xylocaine 2% Jelly) 10 ml MUCMEM ONETIME ONE Stop: 10/26/16 21:08 Last Admin: 10/26/16 21:34 Dose: 10 ml Lorazepam (Ativan) 0.5 - 1 mg IVPUSH Q4H PRN PRN Reason: Nausea/Vomiting Morphine Sulfate (Morphine) 4 - 8 mg IV Q2H PRN PRN Reason: SEVERE PAIN (7-10) Ondansetron HCl (Zofran) 4 mg IVPUSH ONETIME ONE Stop: 10/22/16 07:46 Last Admin: 10/22/16 08:09 Dose: 4 mg Pantoprazole Sodium (Protonix Iv) 40 mg IV ONETIME ONE Stop: 10/22/16 12:01 Last Admin: 10/22/16 11:51 Dose: 40 mg Potassium Chloride (Klor-Con M20) 40 meq PO BID [facility]IAS Last Admin: 10/25/16 08:52 Dose: 40 meq Tamsulosin HCl (Flomax) 0.4 mg PO DAILY [facility] *Q Meaningful Use (DIS) - VTE *Q VTE Criteria *Q: VTE Pharmacological Contraindications *Q: Risk of Bleeding (Recent trauma and adrenal hematoma) - Stroke *Q Stroke Criteria *Q: - AMI *Q AMI Criteria *Q:
--- NOTE | 2016-10-29 10:39 | CR ---
Chest 1V Frontal HISTORY: Chest tube removal COMPARISON: Chest x-ray 10/25/2016 and 10/26/2016. Right-sided chest tube has been removed. The subcutaneous gas has improved. Very tiny right apical pneumothorax. Left lung is clear.
--- NOTE | 2016-10-29 10:40 | CR ---
Chest 1V Frontal HISTORY: Chest tube COMPARISON: 10/26/2016. FINDINGS: Right-sided chest tube. No infiltrates. Moderate subcutaneous emphysema. Probable tiny api charlie pneumothorax.
== END 2016-10-27 12:40 | disposition home health service (06) | DRG 200 ==
LOC: JP.ED 07:07 → JP.MS 10:26
PROVIDERS: ADMIT Internal Medicine; ATTEND Internal Medicine
PROC: 0W9930Z Drainage of Right Pleural Cavity with Drainage Device, Percutaneous Approach (ICD-10-PCS; principal; 2016-10-24)
DX: J93.9 Pneumothorax, unspecified (principal); R09.02 Hypoxemia; S22.39XA Fracture of one rib, unspecified side, initial encounter for closed fracture; K56.7 Ileus, unspecified; S22.41XA Multiple fractures of ribs, right side, initial encounter for closed fracture; R33.8 Other retention of urine; W19.XXXA Unspecified fall, initial encounter; Z96.0 Presence of urogenital implants; I10 Essential (primary) hypertension; Z87.19 Personal history of other diseases of the digestive system; M54.9 Dorsalgia, unspecified; G89.29 Other chronic pain; N40.1 Benign prostatic hyperplasia with lower urinary tract symptoms
CPT/HCPCS: 36415; 71020 ×2; 74020 ×2; 80048; 85025; 96361; 96374; 96375; 99284; 99285; J1885; J2405; J7040; 71010; 71010-26; 81001; 85027; 94762; A9270-GY; C9113; J3480; J7030

== ENCOUNTER 2022-07-16 10:08 | Emergency (ER) | payer MEDICARE, BC ==
[2022-07-16] MEDS ORDERED: Sodium Chloride 0.9% 10 ML Syringe FLUSH PRN (10:36)
[2022-07-16] MEDS ORDERED: Diltiazem 25 MG/5 ML SDV IVPUSH ONE (10:49)
[2022-07-16] MEDS ORDERED: Sodium Chloride 0.9% 500 ML IV ONE ×2 (10:59→12:24)
[2022-07-16] MEDS ORDERED: Diltiazem 100 MG in Sodium Chloride 0.9% 100 ML IV SCH (11:00)
[2022-07-16 11:20] LABS: ESTIMATED GFR 54 mL/min (>60)
[2022-07-16 11:22] LABS: TROPONIN I HIGH SENSITIVITY 9.9 pg/mL (<=60.3)
[2022-07-16] MEDS ORDERED: Magnesium Sulfate/Water 2 GM in Premix Bag 1 BAG IV ONE (11:24)
[2022-07-16] MEDS: Potassium Chloride 10 MEQ in Premix Bag 1 BAG IV SCH ×2 (11:34→13:28)
[2022-07-16 11:43] LABS: CORONAVIRUS COVID-19 NAA NEGATIVE (NEGATIVE)
[2022-07-16] MEDS ORDERED: cefTRIAXone 1 GM in Sodium Chloride 0.9% 50 ML IV ONE (12:13)
[2022-07-16] MEDS ORDERED: Potassium Chloride 20 MEQ Tab.ER PO ONE (12:13)
[2022-07-16] MEDS ORDERED: Lidocaine 2% Jelly 10 ML Urojet MUCMEM ONE (14:37)
[2022-07-16] MEDS ORDERED: Lidocaine 1% 5 ML VIAL INJECT ONE (16:03)
[2022-07-16] MEDS ORDERED: Lidocaine 2% Jelly 10 ML Urojet ONE (16:12)
[2022-07-16] MEDS ORDERED: Carbidopa/Levodopa 25-100 MG Tab PO ONE (16:27)
[2022-07-16] MEDS ORDERED: Sodium Chloride 0.9% 1,000 ML IV SCH (17:15)
[2022-07-16 17:36] VITALS: BP 98/66; PULSE 70
== END 2022-07-16 18:10 ==
LOC: JP.ED 10:08
DX: A41.9 Sepsis, unspecified organism (principal); T83.511A Infection and inflammatory reaction due to indwelling urethral catheter, initial encounter; N39.0 Urinary tract infection, site not specified; I95.9 Hypotension, unspecified; E83.42 Hypomagnesemia; E87.6 Hypokalemia; G20 Parkinson's disease; I48.92 Unspecified atrial flutter; R19.7 Diarrhea, unspecified; I10 Essential (primary) hypertension; E78.00 Pure hypercholesterolemia, unspecified; Z88.8 Allergy status to other drugs, medicaments and biological substances; Z79.82 Long term (current) use of aspirin; Z79.899 Other long term (current) drug therapy; Z20.822 Contact with and (suspected) exposure to COVID-19
CPT/HCPCS: 0241U; 36415; 51701; 71045; 71045-26; 80053; 81001; 82803; 83605; 83735; 83880; 84443; 84484; 85025; 85651; 86140; 87040; 87086; 93005; 93010; 96365; 96366; 96367; 96368; 96376; 99285; 99285-25; A9270-GY; J0696; J3475; J3480; J3490; J7040

== ENCOUNTER 2022-08-15 11:29 | Emergency (ER) | payer MEDICARE, BC ==
[2022-08-15 12:05] VITALS: BP 153/76; PULSE 51
[2022-08-15] MEDS ORDERED: Lidocaine 2% Jelly 10 ML Urojet MUCMEM ONE (12:13)
== END 2022-08-15 13:19 | disposition home or self-care (01) ==
LOC: JP.ED 11:29
DX: T83.018A Breakdown (mechanical) of other urinary catheter, initial encounter (principal); E78.00 Pure hypercholesterolemia, unspecified; I10 Essential (primary) hypertension; Z88.8 Allergy status to other drugs, medicaments and biological substances; Z79.899 Other long term (current) drug therapy; Z79.82 Long term (current) use of aspirin
CPT/HCPCS: 99283

== ENCOUNTER 2022-08-21 09:05 | Emergency (ER) | payer MEDICARE, BC ==
[2022-08-21] MEDS ORDERED: Sodium Chloride 0.9% 1,000 ML IV SCH ×2 (10:30→12:45)
[2022-08-21 10:39] LABS: ESTIMATED GFR 59 mL/min (>60)
[2022-08-21] MEDS ORDERED: Potassium Chloride 20 MEQ Tab.ER PO ONE (11:06)
[2022-08-21] MEDS ORDERED: Meropenem 500 MG in Sodium Chloride 0.9% 50 ML IV ONE (11:52)
[2022-08-21 12:11] VITALS: PULSE 52
[2022-08-21 13:53] VITALS: BP 140/80
== END 2022-08-21 14:59 | disposition home or self-care (01) ==
LOC: JP.ED 09:05
DX: E86.0 Dehydration (principal); N39.0 Urinary tract infection, site not specified; E78.00 Pure hypercholesterolemia, unspecified; I10 Essential (primary) hypertension; Z88.8 Allergy status to other drugs, medicaments and biological substances; Z79.899 Other long term (current) drug therapy; Z79.01 Long term (current) use of anticoagulants
CPT/HCPCS: 36415; 80053; 81001; 83605; 85025; 87086; 87088; 87186; 96361; 96365; 99283; 99284; A9270; J2185; J7030

== ENCOUNTER 2022-08-24 12:30 | Inpatient (IN) | payer MEDICARE, BC ==
[2022-08-24] MEDS ORDERED: Lactated Ringers 1,000 ML IV SCH (14:15)
[2022-08-24 14:49] LABS: ESTIMATED GFR 73 mL/min (>60)
[2022-08-24] MEDS ORDERED: Potassium Chloride 10 MEQ in Premix Bag 1 BAG IV ONE ×2 (14:55→22:33)
[2022-08-24] MEDS ORDERED: Potassium Chloride 20 MEQ Tab.ER PO ONE (14:55)
[2022-08-24] MEDS ORDERED: Iopamidol 612 MG/ML 100 ML Bottle IV ONE (15:50)
[2022-08-24] MEDS ORDERED: Sodium Chloride 0.9% 10 ML Syringe FLUSH ONE (15:50)
[2022-08-24] MEDS ORDERED: Sodium Chloride 0.9% 50 ML IV ONE (15:50)
[2022-08-24 20:09] LABS: CORONAVIRUS COVID-19 NAA POSITIVE (NEGATIVE)
[2022-08-24] MEDS ORDERED: Zolpidem 5 MG Tab PO PRN ×2 (20:43)
[2022-08-24] MEDS ORDERED: Morphine 2 MG/ML SYRINGE IVPUSH PRN (20:43)
[2022-08-24] MEDS ORDERED: Albuterol 0.083% 2.5 MG/3 ML Neb Soln NEB PRN (20:43)
[2022-08-24] MEDS ORDERED: Acetaminophen 325 MG Tab PO PRN (20:43)
[2022-08-24] MEDS ORDERED: Acetaminophen/HYDROcodone 325-10 MG Tab PO PRN (20:43)
[2022-08-24] MEDS ORDERED: Meropenem 1 GM in Sodium Chloride 0.9% 100 ML IV SCH (20:43)
[2022-08-24] MEDS ORDERED: Ondansetron 4 MG Tab.DIS PO PRN (20:43)
[2022-08-24] MEDS ORDERED: Ondansetron 4 MG/2 ML SDV IV PRN (20:43)
[2022-08-24] MEDS ORDERED: Pantoprazole 40 MG Vial IV SCH (21:00)
[2022-08-24] MEDS ORDERED: Carbidopa/Levodopa 25-100 MG Tab PO SCH (21:00)
[2022-08-24] MEDS ORDERED: rOPINIRole 0.5 MG Tab PO SCH (21:00)
[2022-08-24] MEDS ORDERED: Pravastatin 20 MG Tab PO SCH (21:00)
[2022-08-24] MEDS: Meropenem 500 MG in Sodium Chloride 0.9% 50 ML IV SCH (22:10)
[2022-08-24] MEDS: Sodium Chloride 0.9% 1,000 ML IV SCH (22:10)
[2022-08-24] MEDS: Amiodarone 200 MG Tab PO SCH (22:25)
[2022-08-24] MEDS ORDERED: Magnesium Sulfate/Water 2 GM in Premix Bag 1 BAG IV ONE (22:33)
[2022-08-25] MEDS: Meropenem 500 MG in Sodium Chloride 0.9% 50 ML IV SCH (03:23)
[2022-08-25] MEDS: Sodium Chloride 0.9% 1,000 ML IV SCH ×3 (05:59→20:10)
[2022-08-25] MEDS ORDERED: Propofol 200 MG/20 ML SDV ONE (07:17)
[2022-08-25] MEDS ORDERED: fentaNYL 50 MCG/ML SDV ONE (07:18)
[2022-08-25] MEDS: Amiodarone 200 MG Tab PO SCH ×2 (07:35→10:11)
[2022-08-25] MEDS ORDERED: Non-Formulary Medication 1 Each (Fluticasone Propionate [Flonase Allergy Relief] 9.9 ML Sp NS SCH (09:00)
[2022-08-25] MEDS ORDERED: Furosemide 40 MG Tab PO SCH (09:00)
[2022-08-25] MEDS ORDERED: Metoprolol Succinate 25 MG Tab.ER PO ONE (10:00)
[2022-08-25] MEDS: Meropenem 1 GM in Sodium Chloride 0.9% 100 ML IV SCH ×2 (10:12→17:44)
[2022-08-25] MEDS: Potassium Chloride 10 MEQ in Premix Bag 1 BAG IV SCH ×4 (12:28→16:33)
[2022-08-25] MEDS: CITALOPRAM 20 MG PO SCH (14:37)
[2022-08-25] MEDS: Tamsulosin 0.4 MG **PTOM PO SCH (14:37)
[2022-08-25] MEDS: AMIODARONE 200 MG PO SCH (20:16)
[2022-08-25] MEDS ORDERED: Pantoprazole 40 MG **PTOM PO SCH (21:00)
[2022-08-25] MEDS ORDERED: PRAVASTATIN 40 MG PO SCH (21:00)
[2022-08-25] MEDS ORDERED: ROPINIROLE 1 MG PO SCH (21:00)
[2022-08-25] MEDS ORDERED: Carbidopa/Levodopa 25-100 MG **PTOM PO SCH (21:00)
[2022-08-26] MEDS: Meropenem 1 GM in Sodium Chloride 0.9% 100 ML IV SCH ×3 (01:13→16:23)
[2022-08-26] MEDS: Sodium Chloride 0.9% 1,000 ML IV SCH (05:00)
[2022-08-26] MEDS ORDERED: Diatrizoate Meglumine/Diatrizoate Sodium 37% 120 ML Bottle PRN (05:00)
[2022-08-26 05:13] LABS: ESTIMATED GFR 73 mL/min (>60)
[2022-08-26] MEDS: Tamsulosin 0.4 MG **PTOM PO SCH (08:01)
[2022-08-26] MEDS: AMIODARONE 200 MG PO SCH (08:01)
[2022-08-26] MEDS: CITALOPRAM 20 MG PO SCH (08:01)
[2022-08-26] MEDS ORDERED: Metoprolol Succinate 50 MG **PTOM PO SCH (09:00)
[2022-08-26] MEDS: Potassium Phos in 0.9 % NaCl 15 MMOL in Premix Bag 1 BAG IV SCH ×4 (09:56→13:37)
[2022-08-26] MEDS ORDERED: Sodium Chloride 0.9% 1,000 ML IV SCH (10:45)
[2022-08-26] MEDS: Amiodarone 200 MG Tab PO SCH (20:14)
[2022-08-26] MEDS: Carbidopa/Levodopa 25-100 MG Tab PO SCH (20:14)
[2022-08-26] MEDS ORDERED: Pantoprazole 40 MG Tab.CR PO SCH (21:00)
[2022-08-26] MEDS ORDERED: Pravastatin 20 MG Tab PO SCH (21:00)
[2022-08-26] MEDS ORDERED: rOPINIRole 1 MG Tab PO SCH (21:00)
[2022-08-27] MEDS: Meropenem 1 GM in Sodium Chloride 0.9% 100 ML IV SCH ×3 (01:48→17:45)
[2022-08-27 04:56] LABS: ESTIMATED GFR 86 mL/min (>60)
[2022-08-27] MEDS ORDERED: Potassium Chloride 10 MEQ in Premix Bag 1 BAG IV ONE ×2 (05:04→06:10)
[2022-08-27] MEDS ORDERED: Naloxone 0.4 MG/ML SDV IVPUSH PRN (08:00)
[2022-08-27] MEDS ORDERED: Meropenem 500 MG SDV ONE (08:02)
[2022-08-27] MEDS ORDERED: fentaNYL 250 MCG/5 ML SDV ONE (08:42)
[2022-08-27] MEDS ORDERED: Ondansetron 4 MG/2 ML SDV ONE (08:43)
[2022-08-27] MEDS ORDERED: Propofol 200 MG/20 ML SDV ONE (08:43)
[2022-08-27] MEDS ORDERED: Dexamethasone 4 MG/ML SDV ONE (08:43)
[2022-08-27] MEDS ORDERED: Rocuronium 50 MG/5 ML Vial ONE ×2 (08:43→14:04)
[2022-08-27] MEDS ORDERED: Neostigmine Methylsulfate 1 MG/ML 5 ML Syringe ONE (08:43)
[2022-08-27] MEDS ORDERED: Succinylcholine 200 MG/10 ML MDV ONE (08:43)
[2022-08-27] MEDS ORDERED: Glycopyrrolate 0.2 MG/ML 5 ML MDV ONE (08:43)
[2022-08-27] MEDS: Citalopram 20 MG Tab PO SCH (09:24)
[2022-08-27] MEDS: Metoprolol Succinate 25 MG Tab.ER PO SCH (09:24)
[2022-08-27] MEDS: Tamsulosin 0.4 MG Cap.ER PO SCH (09:24)
[2022-08-27] MEDS: Amiodarone 200 MG Tab PO SCH ×2 (09:25→23:41)
[2022-08-27] MEDS: Potassium Chloride 10 MEQ in Premix Bag 1 BAG IV SCH ×4 (09:54→18:54)
[2022-08-27] MEDS ORDERED: Albuterol/Ipratropium 3.0-0.5 MG/3 ML Neb Soln INH ONE (11:00)
[2022-08-27] MEDS ORDERED: cefOXitin 2 GM in Sodium Chloride 0.9% 50 ML IV ONE (11:00)
[2022-08-27] MEDS ORDERED: Lidocaine 1% with EPINEPHrine 1:100,000 50 ML MDV ONE (11:25)
[2022-08-27] MEDS ORDERED: Bupivacaine 0.5% 50 ML MDV ONE (11:25)
[2022-08-27] MEDS ORDERED: Sodium Chloride 0.9% 10 ML ONE (12:04)
[2022-08-27] MEDS ORDERED: Glucagon,Human Recombinant 1 MG Vial ONE (13:30)
[2022-08-27] MEDS ORDERED: ePHEDrine 50 MG/ML SDV ONE (13:33)
[2022-08-27] MEDS ORDERED: Lactated Ringers 1,000 ML ONE (13:37)
[2022-08-27] MEDS ORDERED: Meropenem 500 MG SDV IRR ONE (13:40)
[2022-08-27] MEDS ORDERED: Magnesium Sulfate/Water 2 GM in Premix Bag 1 BAG IV SCH (14:00)
[2022-08-27] MEDS ORDERED: Cyclobenzaprine 10 MG Tab PO PRN (17:13)
[2022-08-27] MEDS ORDERED: Dextrose 5%-Lactated Ringers 1,000 ML IV SCH (17:15)
[2022-08-27] MEDS: fentaNYL 1,250 MCG in Sodium Chloride 0.9% 225 ML EPIDUR SCH (17:38)
[2022-08-27] MEDS ORDERED: Naloxone 0.4 MG/ML SDV IV PRN (18:00)
[2022-08-27] MEDS ORDERED: diphenhydrAMINE 50 MG/ML SDV IVPUSH PRN ×2 (18:00)
[2022-08-27] MEDS ORDERED: Acetaminophen 500 MG Tab PO PRN (18:00)
[2022-08-27] MEDS ORDERED: Ondansetron 4 MG/2 ML SDV IVPUSH PRN (18:00)
[2022-08-27] MEDS ORDERED: MVI, Adult with Vitamin K 10 ML, Thiamine 200 MG, Zinc/Copper/Manganese/Selenium 1 ML i... IV SCH ×4 (18:00)
[2022-08-27] MEDS ORDERED: Albuterol/Ipratropium 3.0-0.5 MG/3 ML Neb Soln INH PRN (18:00)
[2022-08-27] MEDS ORDERED: Labetalol 20 MG/4 ML Syringe IVPUSH PRN (18:00)
[2022-08-27] MEDS ORDERED: hydrOXYzine HCl 50 MG/ML SDV IM PRN (18:00)
[2022-08-27] MEDS: cefOXitin 2 GM in Sodium Chloride 0.9% 50 ML IV SCH (18:21)
[2022-08-27] MEDS ORDERED: Lactated Ringers 500 ML IV ONE (18:45)
[2022-08-27] MEDS: Pantoprazole 40 MG Vial IVPUSH SCH (20:17)
[2022-08-27] MEDS ORDERED: rOPINIRole 0.5 MG Tab PO SCH (21:00)
[2022-08-27] MEDS ORDERED: Lactated Ringers 500 ML IV STA (21:20)
[2022-08-27] MEDS: Albuterol/Ipratropium 3.0-0.5 MG/3 ML Neb Soln INH SCH (21:23)
[2022-08-27] MEDS: rOPINIRole 1 MG Tab PO SCH (21:24)
[2022-08-27] MEDS: Carbidopa/Levodopa 25-100 MG Tab PO SCH (21:24)
[2022-08-27] MEDS: Acetaminophen 500 MG Tab PO SCH (23:40)
[2022-08-28] MEDS: cefOXitin 2 GM in Sodium Chloride 0.9% 50 ML IV SCH ×5 (00:04→23:00)
[2022-08-28] MEDS: Meropenem 1 GM in Sodium Chloride 0.9% 100 ML IV SCH ×2 (02:00→08:38)
[2022-08-28] MEDS ORDERED: Lactated Ringers 500 ML IV STA ×2 (04:16→06:53)
[2022-08-28 05:14] LABS: ESTIMATED GFR 54 mL/min (>60)
[2022-08-28] MEDS: Acetaminophen 500 MG Tab PO SCH ×4 (05:17→21:11)
[2022-08-28] MEDS ORDERED: Dextrose 5%-Lactated Ringers 1,000 ML IV SCH (07:45)
[2022-08-28] MEDS: Tamsulosin 0.4 MG Cap.ER PO SCH (08:38)
[2022-08-28] MEDS: Celecoxib 200 MG Cap PO SCH ×2 (08:38→20:43)
[2022-08-28] MEDS: Citalopram 20 MG Tab PO SCH (08:38)
[2022-08-28] MEDS ORDERED: Albuterol/Ipratropium 4 GM Inhalation Spray INH PRN (09:39)
[2022-08-28] MEDS ORDERED: Lactated Ringers 500 ML IV SCH ×2 (10:00→23:45)
[2022-08-28] MEDS: Amiodarone 200 MG Tab PO SCH ×2 (10:04→20:41)
[2022-08-28] MEDS: Metoprolol Succinate 25 MG Tab.ER PO SCH (10:04)
[2022-08-28] MEDS: Furosemide 40 MG Tab PO SCH (10:04)
[2022-08-28] MEDS: Albumin Human 25 GM in Premix Bag 1 BAG IV SCH (10:23)
[2022-08-28] MEDS: Dextrose 5%-Lactated Ringers 1,000 ML with Naloxone 0.4 MG IV SCH ×4 (11:01→17:58)
[2022-08-28] MEDS: Albuterol/Ipratropium 4 GM Inhalation Spray INH SCH ×3 (11:03→20:43)
[2022-08-28] MEDS: Albuterol/Ipratropium 3.0-0.5 MG/3 ML Neb Soln INH SCH (11:04)
[2022-08-28] MEDS: fentaNYL 1,250 MCG in Sodium Chloride 0.9% 225 ML EPIDUR SCH (11:21)
[2022-08-28] MEDS ORDERED: 1: AA 5%/Calcium/D15W/Lytes 2,000 ML with MVI, Adult with Vitamin K 10 ML, Zinc/Copper/M IV SCH ×3 (12:00)
[2022-08-28] MEDS: Pantoprazole 40 MG Vial IVPUSH SCH (20:39)
[2022-08-28] MEDS: Carbidopa/Levodopa 25-100 MG Tab PO SCH (20:40)
[2022-08-28] MEDS: rOPINIRole 1 MG Tab PO SCH (20:43)
[2022-08-29] MEDS: Dextrose 5%-Lactated Ringers 1,000 ML with Naloxone 0.4 MG IV SCH ×2 (00:57)
[2022-08-29] MEDS ORDERED: Haloperidol Lactate 5 MG/ML SDV ONE (01:58)
[2022-08-29] MEDS: Haloperidol Lactate 5 MG/ML SDV IVPUSH PRN ×4 (02:04→22:46)
[2022-08-29] MEDS ORDERED: Lactated Ringers 500 ML IV SCH (04:30)
[2022-08-29] MEDS: cefOXitin 2 GM in Sodium Chloride 0.9% 50 ML IV SCH ×2 (05:33→12:07)
[2022-08-29] MEDS: Acetaminophen 500 MG Tab PO SCH ×3 (05:34→22:18)
[2022-08-29] MEDS ORDERED: Meropenem 500 MG SDV ONE (06:43)
[2022-08-29] MEDS ORDERED: Bupivacaine 0.5% 50 ML MDV ONE (06:43)
[2022-08-29 06:48] LABS: ESTIMATED GFR 59 mL/min (>60)
[2022-08-29] MEDS ORDERED: Lidocaine 1% with EPINEPHrine 1:100,000 50 ML MDV ONE (07:13)
[2022-08-29] MEDS ORDERED: Ropivacaine 38 ML, dexAMETHasone 8 MG, EPINEPHrine 0.4 MG, Sodium Chloride 0.9% 39.6 ML NERVRT SCH ×4 (07:15)
[2022-08-29] MEDS ORDERED: Propofol 200 MG/20 ML SDV ONE (07:44)
[2022-08-29] MEDS ORDERED: Lidocaine 1% with EPINEPHrine 1:100,000 50 ML MDV INJECT ONE (07:45)
[2022-08-29] MEDS ORDERED: Bupivacaine 0.5% 50 ML MDV INJECT ONE (07:45)
[2022-08-29] MEDS: Albuterol/Ipratropium 4 GM Inhalation Spray INH SCH ×4 (07:47→20:45)
[2022-08-29] MEDS ORDERED: Central Total Parenteral Nutrition Bag SCH ×2 (08:00→12:15)
[2022-08-29] MEDS ORDERED: HYDROmorphone/Normal Saline 6 MG/30 ML PCA Vial IV PRN (08:59)
[2022-08-29] MEDS ORDERED: Naloxone 0.4 MG/ML SDV IV PRN (09:00)
[2022-08-29] MEDS: Dextrose 5%-Lactated Ringers 1,000 ML IV SCH ×2 (09:33→16:30)
[2022-08-29] MEDS: Albumin Human 25 GM in Premix Bag 1 BAG IV SCH (10:12)
[2022-08-29] MEDS ORDERED: 1: AA 5%/Calcium/D15W/Lytes 2,000 ML with MVI, Adult with Vitamin K 10 ML, Zinc/Copper/M IV SCH ×3 (13:00)
[2022-08-29] MEDS: Celecoxib 200 MG Cap PO SCH ×2 (14:44→20:45)
[2022-08-29] MEDS: Citalopram 20 MG Tab PO SCH (14:44)
[2022-08-29] MEDS: Metoprolol Succinate 25 MG Tab.ER PO SCH (14:45)
[2022-08-29] MEDS: Amiodarone 200 MG Tab PO SCH ×2 (14:45→20:46)
[2022-08-29] MEDS: Furosemide 40 MG Tab PO SCH (14:45)
[2022-08-29] MEDS: Tamsulosin 0.4 MG Cap.ER PO SCH (14:45)
[2022-08-29] MEDS: Pantoprazole 40 MG Vial IVPUSH SCH (20:30)
[2022-08-29] MEDS: rOPINIRole 1 MG Tab PO SCH (20:46)
[2022-08-29] MEDS: Carbidopa/Levodopa 25-100 MG Tab PO SCH (20:46)
[2022-08-30 01:07] VITALS: BP 95/48; PULSE 72
[2022-08-30] MEDS: EPINEPHrine 1:10,000 1 MG/10 ML Syringe IV ONE (01:21)
== END 2022-08-30 01:28 | disposition expired | DRG 329 ==
LOC: JP.ED 12:30 → OBSVTOIN 19:36 → JP.MS 19:36 → INTOOBSV 19:36 → UNDOADMOB 19:36 → OBSVTOIN 08-26 11:00 → INTOOBSV 08-26 11:00 → JP.MS 08-26 11:00 → UNDOADMOB 08-26 11:00 → JP.MS 08-27 14:49 → JP.ICU 08-27 14:49 → UNDODISIN 08-30 01:28
PROVIDERS: ADMIT Internal Medicine; ATTEND Hospitalist
PROC: 0DBN8ZX Excision of Sigmoid Colon, Via Natural or Artificial Opening Endoscopic, Diagnostic (ICD-10-PCS; 2022-08-25)
PROC: 3E0H8KZ Introduction of Other Diagnostic Substance into Lower GI, Via Natural or Artificial Opening Endoscopic (ICD-10-PCS; 2022-08-25)
PROC: 8E0ZXY6 Isolation (ICD-10-PCS; 2022-08-26)
PROC: 0DTF0ZZ Resection of Right Large Intestine, Open Approach (ICD-10-PCS; principal; 2022-08-27)
PROC: 0DBP0ZZ Excision of Rectum, Open Approach (ICD-10-PCS; 2022-08-27)
PROC: 0DH60UZ Insertion of Feeding Device into Stomach, Open Approach (ICD-10-PCS; 2022-08-27)
PROC: 3E0333Z Introduction of Anti-inflammatory into Peripheral Vein, Percutaneous Approach (ICD-10-PCS; 2022-08-27)
PROC: 5A1221J Performance of Cardiac Output, Continuous, Automated (ICD-10-PCS; 2022-08-27)
PROC: 0WQF0ZZ Repair Abdominal Wall, Open Approach (ICD-10-PCS; 2022-08-29)
PROC: 3E033XZ Introduction of Vasopressor into Peripheral Vein, Percutaneous Approach (ICD-10-PCS; 2022-08-29)
PROC: 5A09357 Assistance with Respiratory Ventilation, Less than 24 Consecutive Hours, Continuous Positive Airway Pressure (ICD-10-PCS; 2022-08-29)
PROC: 0BH17EZ Insertion of Endotracheal Airway into Trachea, Via Natural or Artificial Opening (ICD-10-PCS; 2022-08-30)
DX: K59.39 Other megacolon (principal); J95.822 Acute and chronic postprocedural respiratory failure; U07.1 COVID-19; K56.609 Unspecified intestinal obstruction, unspecified as to partial versus complete obstruction; I48.3 Typical atrial flutter; N39.0 Urinary tract infection, site not specified; T83.511A Infection and inflammatory reaction due to indwelling urethral catheter, initial encounter; Z16.39 Resistance to other specified antimicrobial drug; K56.7 Ileus, unspecified; Z66 Do not resuscitate; I46.9 Cardiac arrest, cause unspecified; B96.5 Pseudomonas (aeruginosa) (mallei) (pseudomallei) as the cause of diseases classified elsewhere; E78.00 Pure hypercholesterolemia, unspecified; H91.90 Unspecified hearing loss, unspecified ear; I10 Essential (primary) hypertension; N52.9 Male erectile dysfunction, unspecified; K63.89 Other specified diseases of intestine; G89.29 Other chronic pain; M54.9 Dorsalgia, unspecified; G25.81 Restless legs syndrome; I48.91 Unspecified atrial fibrillation; G20 Parkinson's disease; E87.6 Hypokalemia; Y84.6 Urinary catheterization as the cause of abnormal reaction of the patient, or of later complication, without mention of misadventure at the time of the procedure; N31.9 Neuromuscular dysfunction of bladder, unspecified; E88.09 Other disorders of plasma-protein metabolism, not elsewhere classified; E83.42 Hypomagnesemia; Z79.01 Long term (current) use of anticoagulants; Z87.440 Personal history of urinary (tract) infections; Z79.899 Other long term (current) drug therapy; Z98.890 Other specified postprocedural states
CPT/HCPCS: 0241U; 36415; 51702; 74176; 74177; 80053; 81001; 83605; 83735; 83880; 84100; 84132; 84145; 85025; 85027; 86140; 86850; 86900; 86901; 86920; 86922; 87040; 88305; 88309; 94640; 94660; 96361; 96365; 96366; 96367; 96375; 96376; 99232; 99233; 99284; 99285; 80048; 99223; A9270-GY; C1751; C9113; G0378; J0171; J0330; J0694; J1100; J1170; J1610; J1630; J1642; J2185; J2310; J2405; J2704; J2710; J2795; J3010; J3410; J3411; J3475; J3480; J3490; J7030; J7050; J7120; J7121; J7620; P9047; Q9963